=== PATIENT | male | born 1930 | race Caucasian/White ===

== ENCOUNTER 2017-04-21 04:57 | Emergency (ER) | payer MEDICARE, BC ==
--- NOTE | 2017-04-21 05:27 | ER Document Report ---
HPI - HPI Pain Level: Denies Notes: Patient is an 86-year-old male who presents to the ED complaining of right hip pain status post fall yesterday afternoon. Patient states that he was using his electric scooter in the yard when he tripped. Patient states that when he fell he twisted and landed in the grass, but denies hitting his head, loss of consciousness, nausea/vomiting. Patient states that he was able to get right back up and walking in the house without any problems. Patient states that the pain has been gradually building since that time. Patient states that the pain is primarily there when he is ambulating and weightbearing, and is not there when he is laying still. Patient states that that the pain is described as sharp/ache without any radiation. /daughter state that he is at his baseline for mentation and behavior w/o acute changes that they are aware of. Daughter states that he has been ambulatory around the house w/o any difficulties, but does note discomfort/pain on/off. Denies any headache, fever, changes in mentation/behavior/speech/vision/hearing , head injury, neck pain, URI, sore throat, chest pain, palpitations, syncope, cough, shortness of breath, wheeze, dyspnea, abdominal pain, nausea/vomiting/ diarrhea, urinary retention, dysuria, hematuria, loss of control of bowel or bladder, numbness/tingling, saddle anesthesia, muscle paralysis/weakness, or rash. - ROS Notes: REVIEW OF SYSTEMS: CONSTITUTIONAL : Denies fever, chills, or sweats. Denies recent illness. EENT: Denies eye, ear, throat, or mouth pain or symptoms. Denies nasal or sinus congestion or discharge. Denies throat, tongue, or mouth swelling or difficulty swallowing. CARDIOVASCULAR: Denies chest pain. Denies palpitations or racing or irregular heart beat. Denies ankle edema. RESPIRATORY: Denies cough, cold, or chest congestion. Denies shortness of breath, difficulty breathing, or wheezing. GASTROINTESTINAL: Denies abdominal pain or distention. Denies nausea, vomiting , or diarrhea. Denies blood in vomitus, stools, or per rectum. Denies black, tarry stools. Denies constipation. GENITOURINARY: Denies difficulty urinating, painful urination, burning, frequency, blood in urine, or discharge. MUSCULOSKELETAL: see hpi SKIN: Denies rash, lesions or sores. 13 NEUROLOGICAL: Denies confusion or altered mental status. Denies passing out or loss of consciousness. Denies dizziness or lightheadedness. Denies headache. Denies weakness or paralysis or loss of use of either side. Denies problems with gait or speech. Denies sensory loss, numbness, or tingling. ALL OTHER SYSTEMS REVIEWED AND NEGATIVE. Dictation was performed using [employer] voice recognition software - CARDIOVASCULAR Cardiovascular: DENIES: Chest pain - REPRODUCTIVE Reproductive: DENIES: : - DERM Skin Color: Normal Past Medical History - Social History Smoking Status: Former Smoker Chew tobacco use (# tins/day): No Frequency of alcohol use: None Drug Abuse: None Family History: Other - kidney stones. Patient has suicidal ideation: No Patient has homicidal ideation: No - Past Medical History Cardiac Medical History: Reports: Hx Coronary Artery Disease Pulmonary Medical History: Reports: Hx COPD Renal/ Medical History: Denies: Hx Peritoneal Dialysis Malignancy Medical History: Reports Hx Lung Cancer Musculoskeltal Medical History: Reports Hx Arthritis - RA. Past Surgical History: Reports: Hx Cardiac Surgery - CABG, Hx Coronary Artery Bypass Graft - Immunizations Hx Pneumococcal Vaccination: 07/27/09 Vertical Provider Document - CONSTITUTIONAL Agree With Documented VS: Yes Notes: PHYSICAL EXAMINATION: GENERAL: Well-appearing, well-nourished and in no acute distress. A&Ox4 HEAD: Atraumatic, normocephalic. Non-tender. No lagunas sign EYES: Pupils equal round and reactive to light, extraocular movements intact, sclera anicteric, conjunctiva are normal. No raccoon eyes/entrapment ENT: EAC clear b/l. TM's intact b/l without erythema, fluid, or perforation. Nares patent and without discharge. oropharynx clear without exudates. No tonsilar hypertrophy or erythema. Moist mucous membranes. No sinus tenderness. No hemotympanum/CSF discharge. NECK: Normal range of motion, supple without lymphadenopathy. No rigidity. No midline tenderness. Spurling negative. NEXUS negative. Chest: No flail chest. equal rise/fall. Non-tender LUNGS: Breath sounds clear to auscultation bilaterally and equal. No wheezes rales or rhonchi. (no lung sounds to LLL due to surgical removal) HEART: Regular rate and rhythm without murmurs, rubs, gallops. ABDOMEN: Soft, nontender, nondistended abdomen. No guarding, no rebound. No masses appreciated. Normal bowel sounds present. No CVA tenderness bilaterally. No pulsatile mass. : No lesions, ulcerations, or ecchymosis. No hernia. No testicular tenderness. No inguinal adenopathy. Musculoskeletal: Ext b/l: FROM to passive/active. Strength 5+/5. No deficits noted. + tenderness to palp of the anterior pelvis on the rt side when patient is weightbearing and is not there when supine. No tenderness with ROM of the hip. No ecchymosis, abrasion, laceration, or deformity noted. Back: FROM to passive/active. Strength 5+/5. No vertebral point tenderness, stepoffs, or deformities. No other bony tenderness or ecchymosis. SLR negative b/l. Extremities: No cyanosis, clubbing, or edema b/l. Peripheral pulses 2+. Capillary refill less than 2 seconds. NEUROLOGICAL: NIH 0. MMSE intact. Cranial nerves grossly intact. Normal speech, ataxic gait. Normal sensory, motor exams. Reflexes 2+ b/l. HI's negative. Pronator drift negative. Heel/zafar, finger/nose wnl. Walking on heels /toes and heel to toe wnl. PSYCH: Normal mood, normal affect. SKIN: Warm, Dry, normal turgor, no rashes or lesions noted. - INFECTION CONTROL TRAVEL OUTSIDE OF THE [place] IN LAST 30 DAYS: No - RESPIRATORY O2 Sat by Pulse Oximetry: 94 Course - Re-evaluation Re-evalutation: 04/21/17 06:50 Patient is an afebrile, well-hydrated, 86-year-old male who presents to the ED with a right hip flexor strain/right hip pain. Vitals are stable. PE otherwise unremarkable for any focal neurological deficits. X-ray of the pelvis was unremarkable for any acute fracture or dislocation. NIH score is 0 and MMSE was intact. Patient in no other bony tenderness. Recommend conservative measures for symptoms with close monitoring for any acute changes. Low suspicion/risk for any fracture, dislocation, septic joint, head injury, cranial pathology, sepsis, neurovascular compromise, or other systemic emergent condition at this time. Patient and family are aware that his condition can change from initial presentation and the need to monitor symptoms closely and seek medical attention if any acute changes. Recheck with your PCM in 2-3 days. Consider consult with orthopedics/physical therapy. Return to the ED with any worsening/concerning symptoms otherwise as reviewed in discharge. Patient and family are in agreement. - Vital Signs Vital signs: Temp Pulse Resp BP Pulse Ox 97.7 F 94 22 H 123/79 94 04/21/17 04:57 04/21/17 04:57 04/21/17 05:03 04/21/17 04:57 04/21/17 04:57 Discharge - Discharge Clinical Impression: Acute right hip pain Condition: Stable Disposition: HOME, SELF-CARE Instructions: Ice Massage ([facility]), Ice Packs ([facility]), Muscle Strain ([facility]), Warm Packs ([facility]) Additional Instructions: Rest, Ice Tylenol/ibuprofen as needed Light stretches daily Strength exercises as able Moist heat and massage may help F/u with your PCP in 2-3 days for a recheck Consider consult(s) with Orthopedics/physical therapy for ongoing/worsening symptoms Return to the ED with any worsening symptoms and/or development of fever, headache, changes in vision/hearing/behavior/mentation/speech, chest pain, palpitations, syncope, shortness of breath, trouble breathing, abdominal pain, n /v/d, blood in stool/urine, loss of control of bowel/bladder, urinary retention , muscle weakness/paralysis, saddle anesthesia, numbness/tingling, or other worsening symptoms that are concerning to you. Referrals: [facility] [Provider Group] - Follow up as needed
--- NOTE | 2017-04-21 06:49 | RADIOLOGY REPORT (SQ) ---
EXAM DESCRIPTION: PELVIS AP COMPLETED DATE/TIME: 04/21/2017 6:28 am REASON FOR STUDY: fall, rt side pain COMPARISON: None. NUMBER OF VIEWS: One view TECHNIQUE: AP Pelvis LIMITATIONS: None. FINDINGS: MINERALIZATION: Normal. HIPS: No acute fracture or dislocation. No worrisome bone lesions. Minimal fragmented enthesophyte a t the lateral aspect of the right greater trochanter. PELVIS AND SACRUM: No acute fracture or dislocation. No worrisome bone lesions. PUBIS AND ISCHIUM: No acute fracture. LOWER LUMBAR SPINE: Mild lower lumbar disc desiccation. SOFT TISSUES: No findings. OTHER: Atherosclerosis. IMPRESSION: No acute findings. TECHNICAL DOCUMENTATION: JOB ID: [id number] [email or web address]- All Rights Reserved
[2017-04-21 07:34] VITALS: BP 140/72
== END 2017-04-21 07:20 | disposition home or self-care (01) ==
LOC: ER 04:57
DX: M25.551 Pain in right hip (principal); W05.2XXA Fall from non-moving motorized mobility scooter, initial encounter; Y92.007 Garden or yard of unspecified non-institutional (private) residence as the place of occurrence of the external cause; I25.10 Atherosclerotic heart disease of native coronary artery without angina pectoris; J44.9 Chronic obstructive pulmonary disease, unspecified; Z95.1 Presence of aortocoronary bypass graft; Z85.118 Personal history of other malignant neoplasm of bronchus and lung
CPT/HCPCS: 72170; 99283

== ENCOUNTER 2017-06-05 19:53 | Emergency (ER) | payer BC, MEDICARE ==
[2017-06-05 21:28] LABS: ABSOLUTE BASOPHILS # (AUTO) 0.1 10^3/uL (0.0-0.2); ABSOLUTE EOSINOPHILS # (AUTO) 0.1 10^3/uL (0.0-0.6); ABSOLUTE MONOCYTES (AUTO) 0.4 10^3/uL (0.1-1.4); ABSOLUTE NEUT (AUTO) 4.4 10^3/uL (1.7-8.2); EOSINOPHILS % (AUTO) 1.7 % (0-6); HEMOGLOBIN 14.1 g/dL (13.5-17.0); HGB HCT DIFFERENCE 1.3; LYMPHOCYTES % (AUTO) 16.2 % (13-45); MEAN CORPUSCULAR HGB CONC 34.3 g/dL (32.0-36.0); MEAN CORPUSCULAR VOLUME 99 fl (80-97); MONOCYTES % (AUTO) 6.9 % (3-13); RED BLOOD COUNT 4.14 10^6/uL (4.35-5.55); RED CELL DISTRIBUTION WIDTH 14.3 % (11.5-14.0); SEGMENTED NEUTROPHILS % (AUTO) 74.2 % (42-78); WHITE BLOOD COUNT 5.9 10^3/uL (4.0-10.5)
[2017-06-05 21:40] LABS: ALANINE AMINOTRANSFERASE 34 U/L (21-72); ALBUMIN 3.1 g/dL (3.5-5.0); ALKALINE PHOSPHATASE 101 U/L (38-126); ANION GAP 5 (5-19); ASPARTATE AMINO TRANSFERASE 25 U/L (17-59); BILIRUBIN,DIRECT 0.4 mg/dL (0.0-0.4); BILIRUBIN,TOTAL 1.4 mg/dL (0.2-1.3); BLOOD UREA NITROGEN 30 mg/dL (7-20); CALCIUM 8.6 mg/dL (8.4-10.2); CARBON DIOXIDE 25 mmol/L (22-30); CHLORIDE 105 mmol/L (98-107); CREATININE RESULT 1.47 mg/dL (0.52-1.25); GLUCOSE 99 mg/dL (75-110); LIPASE 106.3 U/L (23-300); POTASSIUM 4.1 mmol/L (3.6-5.0); SODIUM 134.9 mmol/L (137-145); TOTAL PROTEIN 5.9 g/dL (6.3-8.2)
--- NOTE | 2017-06-05 22:20 | RADIOLOGY REPORT (SQ) ---
EXAM DESCRIPTION: CHEST SINGLE VIEW COMPLETED DATE/TIME: 06/05/2017 9:46 pm REASON FOR STUDY: flank pain COMPARISON: 10/13/2010 EXAM PARAMETERS: NUMBER OF VIEWS: One view. TECHNIQUE: Single frontal radiographic view of the chest acquired. RADIATION DOSE: NA LIMITATIONS: None. FINDINGS: LUNGS AND PLEURA: No opacities, masses or pneumothorax. No pleural effusion. MEDIASTINUM AND HILAR STRUCTURES: No masses. Contour normal. HEART AND VASCULAR STRUCTURES: Heart normal in size. Normal vasculature. BONES: No acute findings. HARDWARE: Midline surgical changes, stable. OTHER: No other significant finding. IMPRESSION: No evidence of acute cardiopulmonary process. TECHNICAL DOCUMENTATION: JOB ID: [id number] [employer]- All Rights Reserved
[2017-06-05] MEDS ORDERED: NORMAL SALINE 500 ML IV PRN (22:26)
[2017-06-05 22:43] LABS: APPEARANCE,URINE CLEAR; BILIRUBIN,URINE NEGATIVE (NEGATIVE); GLUCOSE, URINE NEGATIVE (NEGATIVE); KETONES,URINE NEGATIVE (NEGATIVE); LEUKOCYTE ESTERASE,URINE TRACE (NEGATIVE); NITRITE,URINE NEGATIVE (NEGATIVE); PROTEIN,URINE NEGATIVE (NEGATIVE); URINE SPECIFIC GRAVITY 1.011; UROBILINOGEN,URINE NEGATIVE mg/dL (<2.0)
--- NOTE | 2017-06-05 23:34 | RADIOLOGY REPORT (SQ) ---
EXAM DESCRIPTION: CT ABD/PELVIS NO ORAL OR IV COMPLETED DATE/TIME: 06/05/2017 11:02 pm REASON FOR STUDY: right flank pain COMPARISON: 7.28.15 TECHNIQUE: CT scan of the abdomen and pelvis performed without intravenous or oral contrast. Images reviewed with lung, soft tissue, and bone windows. Reconstructed coronal and sagittal MPR images revi ewed. All images stored on PACS. All CT scanners at this facility use dose modulation, iterative reconstruction, and/or weight based d osing when appropriate to reduce radiation dose to as low as reasonably achievable (ALARA). [facility]: Dose Right [facility]: CareDose [facility]: Dose Right [facility]: Teradose 4D [facility]: Novalact RADIATION DOSE: Up-to-date CT equipment and radiation dose reduction techniques were employed. CTDIv ol: 11.5 mGy. DLP: 653 mGy-cm.mGy. LIMITATIONS: None. FINDINGS: LOWER CHEST: No significant findings. No nodules or infiltrates. Coronary arterial calcif ication -stenting. Small hiatal hernia. NON-CONTRASTED LIVER, SPLEEN, ADRENALS: Evaluation limited by lack of IV contrast. No identified sign ificant masses. PANCREAS: No masses. No peripancreatic inflammatory changes. GALLBLADDER: No identified stones by CT criteria. No inflammatory changes to suggest cholecystitis. RIGHT KIDNEY AND URETER: No suspicious masses. Assessment limited by lack of IV contrast. No signif icant calcifications. No hydronephrosis or hydroureter. LEFT KIDNEY AND URETER: No suspicious masses. Assessment limited by lack of IV contrast. No signifi cant calcifications. No hydronephrosis or hydroureter. Moderate likely benign parapelvic cysts. 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 BOWEL AND PERITONEAL CAVITY: No obvious masses or inflammatory changes. No free fluid. Minimal diver ticulosis. APPENDIX: Normal. PELVIS, BLADDER, AND ABDOMINAL WALL:6.7 cm fat only hernia of the anterior pelvic wall lateral to the right rectus abdominus. Small right inguinal fat only hernia. No free fluid. Bladder normal. BONES: New [id number] T12 anterior vertebral compression deformity compared with prior CT from January 2015. [id number] disc desiccation moderate mid-lower lumbar spondylosis. Sternotomy. OTHER: No other significant finding. IMPRESSION: 1. New [id number] T12 anterior vertebral compression deformity compared with prio r available exam from January 2015. 2. 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 3. Small hiatal hernia. Diverticulosis. COMMENT: Quality ID # [id number]: Final reports with documentation of one or more dose reduction techniques (e.g., Automated exposure control, adjustment of the mA and/or kV according to patient size, use of iterative reconstruction technique) TECHNICAL DOCUMENTATION: JOB ID: [id number] [employer]- All Rights Reserved
--- NOTE | 2017-06-06 00:50 | ER Document Report ---
ED General - General Chief Complaint: Flank Pain Stated Complaint: RIGHT FLANK PAIN Time Seen by Provider: 06/05/17 20:54 Mode of Arrival: Ambulatory Information source: Patient Notes: This is an 87-year-old man who presents to the emergency room with back pain after a fall 1 month ago. Patient's family also states that the patient has had decreased p.o. intake and significant weight loss over the past several months. The patient does have a remote history of lung cancer and had a partial lobectomy and did not require chemotherapy or radiation. He does have a history of rheumatoid arthritis, coronary artery disease, hypertension. Family also reports that he has had constipation lately and difficulty urinating and is recently seen a urologist. TRAVEL OUTSIDE OF THE [place] IN LAST 30 DAYS: No - HPI Onset: Last week Onset/Duration: Gradual Quality of pain: Dull Severity: Moderate Pain Level: 2 Associated symptoms: denies: Chest pain, Fever, Shortness of breath Exacerbated by: Denies Relieved by: Denies Similar symptoms previously: Yes Recently seen / treated by doctor: Yes - Related Data Allergies/Adverse Reactions: No Known Allergies Allergy (Unverified 10/12/10 17:20) Past Medical History - General Information source: Patient - Social History Smoking Status: Unknown if Ever Smoked Cigarette use (# per day): No Chew tobacco use (# tins/day): No Frequency of alcohol use: None Drug Abuse: None Lives with: Family Family History: None, Other - kidney stones. Patient has suicidal ideation: No Patient has homicidal ideation: No - Past Medical History Cardiac Medical History: Reports: Hx Coronary Artery Disease Pulmonary Medical History: Reports: Hx COPD Renal/ Medical History: Denies: Hx Peritoneal Dialysis Malignancy Medical History: Reports Hx Lung Cancer Musculoskeltal Medical History: Reports Hx Arthritis - RA. Past Surgical History: Reports: Hx Cardiac Surgery - CABG, Hx Coronary Artery Bypass Graft - Immunizations Hx Pneumococcal Vaccination: 07/27/09 Review of Systems - Review of Systems Constitutional: denies: Chills, Fever EENT: No symptoms reported Cardiovascular: No symptoms reported Respiratory: No symptoms reported Gastrointestinal: No symptoms reported Genitourinary: No symptoms reported Male Genitourinary: No symptoms reported Musculoskeletal: See HPI Skin: No symptoms reported Hematologic/Lymphatic: No symptoms reported Neurological/Psychological: No symptoms reported Physical Exam - Vital signs Vitals: Temp Pulse Resp BP Pulse Ox 97.7 F 80 16 113/69 100 06/05/17 20:08 06/05/17 20:08 06/05/17 20:08 06/05/17 20:08 06/05/17 20:08 Notes: Physical exam: GENERAL: 87-year-old man, alert and oriented 3, no acute distress. HEAD: Atraumatic, normocephalic. EYES: Pupils equal round and reactive to light, extraocular movements intact, sclera anicteric, conjunctiva are normal. ENT: TMs normal, nares patent, oropharynx clear without exudates. Moist mucous membranes. NECK: Normal range of motion, supple without obvious mass or JVD. LUNGS: Breath sounds clear to auscultation bilaterally and equal. No wheezes rales or rhonchi. HEART: Regular rate and rhythm without murmurs, rubs or gallops. ABDOMEN: Soft, normoactive bowel sounds. No tenderness to palpation. No guarding, no rebound. No masses appreciated. Rectal: Brown stool, heme negative. Patient does have a very superficial decubitus on the right buttocks. EXTREMITIES: Normal range of motion, no pitting or edema. No clubbing or cyanosis. NEUROLOGICAL: Cranial nerves II through XII grossly intact. Normal speech, moving all extremities. PSYCH: Normal mood, normal affect. SKIN: Patient does have a superficial coupon the right buttock which the family has been following. Course - Vital Signs Vital signs: Temp Pulse Resp BP Pulse Ox 97.9 F 70 22 H 111/60 95 06/05/17 20:21 06/06/17 02:11 06/06/17 02:11 06/06/17 02:11 06/06/17 02:11 - Laboratory Result Diagrams: 06/05/17 21:02 06/05/17 21:02 Laboratory results interpreted by me: 06/05/17 06/05/17 06/05/17 21:02 21:02 21:33 RBC 4.14 L MCV 99 H MCH 34.0 H RDW 14.3 H Sodium 134.9 L BUN 30 H Creatinine 1.47 H Est GFR ( Amer) 55 L Est GFR (Non-Af Amer) 45 L Total Bilirubin 1.4 H Total Protein 5.9 L Albumin 3.1 L Ur Leukocyte Esterase TRACE H - Diagnostic Test Radiology reviewed: Image reviewed, Reports reviewed - CT of the abdomen shows some mild to moderate compression fracture of T12. It also shows a 2.5 cm aneurysm of the right common iliac - EKG Interpretation by Me Rate: Normal Rhythm: NSR - EKG shows atrial fibrillation with a ventricular rate of 71, right bundle ovoid palliated, no acute ST-T wave changes, no significant change compared to old EKG Discharge - Discharge Clinical Impression: T12 compression fracture Condition: Stable Disposition: HOME, SELF-CARE Instructions: Compression Fracture of the Spine ([facility]) Additional Instructions: As we discussed, the chest x-ray looked good. The CT of the abdomen did show a mild to moderate compression fracture of T12 which most likely occurred during the fall. You are already on medicine to treat for pain. Take the oxycodone as needed. See the instructions for oxycodone. There was an incidental finding on the CT: It did show a 2.5 cm dilatation of the right internal iliac artery. This is an artery coming out from the aorta. You should follow-up with Dr. Ramirez and get a referral to a vascular surgeon. As far as the superficial decubitus on the buttocks: I recommend following up at the wound center here at the hospital. I left a number for Dr. Jonatan Mansfield who is a doctor at the wound care center. The pain medicine you're taking prescribed as a narcotic. There are several important things you should know about this medicine: 1. Taking narcotics for too long can lead to physical and mental dependence. Take this medicine only if really needed and in the lowest quantity to achieve pain relief. 2. Do not drink alcohol while on this medicine. Alcohol interacts with narcotics and the combination can be dangerous. 3. Do not drive or operate machinery while on this medicine. 4. Narcotics do cause constipation, so drink plenty of fluids and daily stool softeners. Prescriptions: Oxycodone HCl 5 mg PO Q6HP PRN #25 tablet PRN Reason: Referrals: MAYO RAMIREZ MD [Primary Care Provider] - Follow up as needed SUGEY MANSFIELD MD [ACTIVE STAFF] - Follow up as needed (This is the number for the wound care doctor.)
[2017-06-06 02:12] VITALS: BP 111/60
--- NOTE | 2017-06-06 08:45 | EKG REPORT ---
SEVERITY:- ABNORMAL ECG - ATRIAL FIBRILLATION, V-RATE 53-88 RBBB AND LAFB : Confirmed by: Bert Keane MD 06-Jun-2017 08:44:15
== END 2017-06-06 02:13 | disposition home or self-care (01) ==
LOC: ER 19:53
DX: S22.089A Unspecified fracture of T11-T12 vertebra, initial encounter for closed fracture (principal); R10.9 Unspecified abdominal pain; M54.9 Dorsalgia, unspecified; K59.00 Constipation, unspecified; W19.XXXA Unspecified fall, initial encounter; Z85.118 Personal history of other malignant neoplasm of bronchus and lung
CPT/HCPCS: 93005; 99285; 36415; 83690; 85025; 82272; 80053; 81001; 71010; 74176; 93010; J7040

== ENCOUNTER 2017-11-20 08:34 | Inpatient (IN) | payer MEDICARE, BC ==
[2017-11-20] MEDS ORDERED: IPRATROPIUM/ALBUTEROL 0.5-2.5 MG/3 ML AMPUL NEB ONE ×2 (09:15→12:30)
[2017-11-20] MEDS ORDERED: PREDNISONE 20 MG TABLET PO ONE ×2 (09:15→12:30)
[2017-11-20] MEDS: ALBUTEROL SULFATE 0.083% NEB 2.5 MG/3 ML AMPUL NEB SCH ×4 (09:33→13:20)
--- NOTE | 2017-11-20 10:11 | RADIOLOGY REPORT (SQ) ---
EXAM DESCRIPTION: CHEST SINGLE VIEW COMPLETED DATE/TIME: 11/20/2017 9:48 am REASON FOR STUDY: Difficulty in breathing COMPARISON: 06/05/2017 EXAM PARAMETERS: NUMBER OF VIEWS: One view. TECHNIQUE: Single frontal radiographic view of the chest acquired. RADIATION DOSE: NA LIMITATIONS: None. FINDINGS: LUNGS AND PLEURA: Postsurgical changes in the left hilum which are stable. Chronic blunti ng left costophrenic angle. Right lung is clear. MEDIASTINUM AND HILAR STRUCTURES: Stable. HEART AND VASCULAR STRUCTURES: Stable heart size. BONES: No acute findings. HARDWARE: CABG. OTHER: No other significant finding. IMPRESSION: Stable, chronic changes. TECHNICAL DOCUMENTATION: JOB ID: [id number] [employer]- All Rights Reserved Reading location - IP/workstation name: [facility]-[email or web address]
[2017-11-20 11:04] LABS: APPEARANCE,URINE CLEAR; BILIRUBIN,URINE NEGATIVE (NEGATIVE); COLOR,URINE AMBER; GLUCOSE, URINE NEGATIVE (NEGATIVE); KETONES,URINE NEGATIVE (NEGATIVE); LEUKOCYTE ESTERASE,URINE NEGATIVE (NEGATIVE); NITRITE,URINE NEGATIVE (NEGATIVE); PROTEIN,URINE 30 mg/dL (NEGATIVE); URINE SPECIFIC GRAVITY 1.027; UROBILINOGEN,URINE NEGATIVE mg/dL (<2.0)
[2017-11-20 11:18] LABS: HEMATOCRIT 42.6 % (37.9-51.0); HEMOGLOBIN 14.2 g/dL (13.5-17.0); MEAN CORPUSCULAR HEMOGLOBIN 33.7 pg (27.0-33.4); MEAN CORPUSCULAR HGB CONC 33.2 g/dL (32.0-36.0); MEAN CORPUSCULAR VOLUME 102 fl (80-97); PLATELET COUNT 184 10^3/uL (150-450); RED CELL DISTRIBUTION WIDTH 14.3 % (11.5-14.0); WHITE BLOOD COUNT 11.8 10^3/uL (4.0-10.5)
[2017-11-20 11:33] LABS: ALANINE AMINOTRANSFERASE 21 U/L (21-72); ALBUMIN 3.2 g/dL (3.5-5.0); ALKALINE PHOSPHATASE 85 U/L (38-126); ANION GAP 7 (5-19); ASPARTATE AMINO TRANSFERASE 22 U/L (17-59); BILIRUBIN,DIRECT 0.2 mg/dL (0.0-0.4); BILIRUBIN,TOTAL 1.5 mg/dL (0.2-1.3); BLOOD UREA NITROGEN 19 mg/dL (7-20); CARBON DIOXIDE 33 mmol/L (22-30); CHLORIDE 102 mmol/L (98-107); CREATINE KINASE 30 U/L (55-170); GLUCOSE 105 mg/dL (75-110); SODIUM 141.7 mmol/L (137-145); TOTAL PROTEIN 6.1 g/dL (6.3-8.2)
[2017-11-20 11:37] LABS: ABSOLUTE LYMPHOCYTES# (MANUAL) 0.8 10^3/uL (0.5-4.7); ABSOLUTE MONOCYTES # (MANUAL) 0.2 10^3/uL (0.1-1.4); ABSOLUTE NEUTROPHILS# (MANUAL) 10.7 10^3/uL (1.7-8.2); BASOPHILS % (MANUAL) 0 % (0-2); EOSINOPHILS % (MANUAL) 0 % (0-6); LYMPHOCYTES % (MANUAL) 7 % (13-45); MONOCYTES % (MANUAL) 2 % (3-13); PLATELET COMMENT ADEQUATE; POLYCHROMASIA SLIGHT; SEGMENTED NEUTROPHILS % (MAN) 91 % (42-78); TOTAL CELLS COUNTED 100; TOXIC GRANULATION 1+
--- NOTE | 2017-11-20 12:54 | EKG REPORT ---
SEVERITY:- ABNORMAL ECG - ATRIAL FIBRILLATION, V-RATE 68-82 RIGHT BUNDLE BRANCH BLOCK +LAFB : Confirmed by: Bert Keane MD 20-Nov-2017 12:54:06
--- NOTE | 2017-11-20 14:21 | ER Document Report ---
ED General - General Chief Complaint: Nausea/Vomiting Stated Complaint: VOMITING,SHORTNESS OF BREATH Time Seen by Provider: 11/20/17 09:10 Information source: Patient, Relative, Emergency Med Personnel Notes: History of complain-87 years old male was brought in because of difficulty in breathing condition some chest discomfort for the last few days. No nausea vomiting diarrhea. He is on Lasix but not urinating that well. Also noted some swelling of the lower extremity. No chest pain. No fever chills or other constitutional symptoms. REVIEW OF SYSTEMS: CONSTITUTIONAL : Denies fever, chills, or sweats. Denies recent illness. EENT: Denies eye, ear, throat, or mouth pain or symptoms. Denies nasal or sinus congestion or discharge. Denies throat, tongue, or mouth swelling or difficulty swallowing. CARDIOVASCULAR: Denies chest pain. Denies palpitations or racing or irregular heart beat. Denies ankle edema. RESPIRATORY: Denies cough, cold, or chest congestion. Denies shortness of breath, difficulty breathing, or wheezing. GASTROINTESTINAL: Denies abdominal pain or distention. Denies nausea, vomiting , or diarrhea. Denies blood in vomitus, stools, or per rectum. Denies black, tarry stools. Denies constipation. GENITOURINARY: Denies difficulty urinating, painful urination, burning, frequency, blood in urine, or discharge. MUSCULOSKELETAL: Denies back or neck pain or stiffness. Denies joint pain or swelling. SKIN: Denies rash, lesions or sores. HEMATOLOGIC : Denies easy bruising or bleeding. LYMPHATIC: Denies swollen, enlarged glands. NEUROLOGICAL: Denies confusion or altered mental status. Denies passing out or loss of consciousness. Denies dizziness or lightheadedness. Denies headache. Denies weakness or paralysis or loss of use of either side. Denies problems with gait or speech. Denies sensory loss, numbness, or tingling. Denies seizures. PSYCHIATRIC: Denies anxiety or stress. Denies depression, suicidal ideation, or homicidal ideation. ALL OTHER SYSTEMS REVIEWED AND NEGATIVE. Dictation was performed using AFTER-MOUSE recognition software PHYSICAL EXAMINATION: GENERAL: Well-appearing, well-nourished and mild to moderate respiratory acute distress. HEAD: Atraumatic, normocephalic. EYES: Pupils equal round and reactive to light, extraocular movements intact, sclera anicteric, conjunctiva are normal. ENT: Nares patent, oropharynx clear without exudates. Moist mucous membranes. NECK: Normal range of motion, supple without lymphadenopathy LUNGS: Diffuse expiratory wheezes with, rales in the lower lung field. HEART: Regular rate and rhythm without murmurs ABDOMEN: Soft, nontender, nondistended abdomen. No guarding, no rebound. No masses appreciated. Musculoskeletal: Normal range of motion, 2+ pitting or edema. No cyanosis. NEUROLOGICAL: Cranial nerves grossly intact. Normal speech, normal gait. Normal sensory, motor exams PSYCH: Normal mood, normal affect. SKIN: Warm, Dry, normal turgor, no rashes or lesions noted. TRAVEL OUTSIDE OF THE [place] IN LAST 30 DAYS: No - HPI Onset: Yesterday Onset/Duration: Gradual Quality of pain: Cramping Severity: Moderate Associated symptoms: None Exacerbated by: denies: Denies, Supine, Sitting, Standing, Movement, Walking, Coughing, Deep breathing, Food, Other Relieved by: denies: Denies, Supine, Sitting, Standing, Remaining still, Antacids, Food, Other - Related Data Allergies/Adverse Reactions: tramadol Allergy (Verified 11/20/17 10:57) Past Medical History - Social History Smoking Status: Former Smoker Chew tobacco use (# tins/day): No Frequency of alcohol use: None Drug Abuse: None Family History: None, Other - kidney stones. Patient has suicidal ideation: No Patient has homicidal ideation: No - Past Medical History Cardiac Medical History: Reports: Hx Atrial Fibrillation, Hx Congestive Heart Failure, Hx Coronary Artery Disease Pulmonary Medical History: Reports: Hx COPD Renal/ Medical History: Denies: Hx Peritoneal Dialysis Malignancy Medical History: Reports Hx Lung Cancer Musculoskeltal Medical History: Reports Hx Arthritis - RA. Past Surgical History: Reports: Hx Cardiac Surgery - CABG, Hx Coronary Artery Bypass Graft - Immunizations Hx Pneumococcal Vaccination: 07/27/09 Review of Systems - Review of Systems Constitutional: denies: No symptoms reported, See HPI, Chills, Diaphoresis, Fever, Malaise, Weakness, Other, Weight gain, Weight loss, Recent illness EENT: denies: No symptoms reported, See HPI, Eye pain, Eye discharge, Blurred vision, Tearing, Double vision, Ear pain, Ear discharge, Nose pain, Nose congestion, Nose discharge, Sinus pressure, Sinus discharge, Throat pain, Difficulty swallowing, Throat swelling, Mouth pain, Mouth swelling, Dental problem, Vertigo, Other Cardiovascular: See HPI Respiratory: See HPI Gastrointestinal: denies: No symptoms reported, See HPI, Abdomen distended, Abdominal pain, Diarrhea, Nausea, Vomiting, Constipation, Blood streaked bowels , Poor appetite, Poor fluid intake, Blood in vomit, Black stools, Rectal bleeding, Last bowel movement, Fecal incontinence, Other Genitourinary: denies: No symptoms reported, See HPI, Burning, Dysuria, Discharge, Frequency, Flank pain, Hematuria, Incontinence, Pain, Urgency, Retention, Other Male Genitourinary: denies: No symptoms reported, See HPI, Erectile dysfunction , Testicular pain, Penile discharge, Other Hematologic/Lymphatic: denies: No symptoms reported, See HPI, Anemia, Blood clots, Easy bleeding, Easy bruising, Enlarged lymph nodes, Swollen glands, Other Neurological/Psychological: denies: No symptoms reported, See HPI, Confusion, Dementia, Depression, Hallucinations, Anxiety, Homicidal ideation, Sensory change, Weakness, Gait changes, Loss of power, Paralysis, Seizure, Lost consciousness, Headaches, Speech impairment, Numbness, Suicidal ideation, Tingling, Tremor, Other Physical Exam - Vital signs Vitals: Temp Pulse BP Pulse Ox 98.0 F 80 132/49 H 99 11/20/17 08:50 11/20/17 08:50 11/20/17 08:50 11/20/17 08:50 - Notes Notes: Dictated Course - Re-evaluation Re-evalutation: 11/20/17 14:20 Given bronchodilator treatment as well as Lasix. Discussed with the hospitalist and admitted - Vital Signs Vital signs: Temp Pulse Resp BP Pulse Ox 98.0 F 80 15 120/57 L 97 11/20/17 08:50 11/20/17 08:50 11/20/17 12:00 11/20/17 12:01 11/20/17 12:01 - Laboratory Result Diagrams: 11/20/17 10:51 11/20/17 10:51 Laboratory results interpreted by me: 11/20/17 11/20/17 11/20/17 10:29 10:51 10:51 WBC 11.8 H RBC 4.20 L MCV 102 H MCH 33.7 H RDW 14.3 H Seg Neuts % (Manual) 91 H Lymphocytes % (Manual) 7 L Monocytes % (Manual) 2 L Abs Neuts (Manual) 10.7 H Carbon Dioxide 33 H Total Bilirubin 1.5 H Creatine Kinase 30 L Total Protein 6.1 L Albumin 3.2 L Urine Protein 30 H - Diagnostic Test Radiology reviewed: Reports reviewed - Chest x-ray reported by radiologist as unremarkable Discharge - Discharge Clinical Impression: Asthma exacerbation in COPD Congestive heart failure Qualifiers: Heart failure type: systolic Heart failure chronicity: acute on chronic Qualified Code(s): I50.23 - Acute on chronic systolic (congestive) heart failure Condition: Fair Disposition: ADMITTED INPATIENT Admitting Provider: Hospitalist Unit Admitted: Telemetry
[2017-11-20] MEDS ORDERED: ACETAMINOPHEN 325 MG TABLET PO PRN (14:53)
[2017-11-20] MEDS ORDERED: LEVALBUTEROL HCL NEB 0.63 MG/3 ML AMPUL NEB PRN (14:53)
[2017-11-20] MEDS ORDERED: (PENDING PHARMACY ID) (Lisinopril [Lisinopril] 20 MG) PO SCH (15:15)
--- NOTE | 2017-11-20 15:55 | PDOC H&P ---
History of Present Illness Admission Date/PCP: 11/20/17 14:39 Patient complains of: Wheezing for 2 weeks History of Present Illness: OBDULIA POP is a 87 year old male with past medical history significant for coronary artery disease, heart failure, COPD who has been cared for at home by a large family and also recently he has had home health nursing related to underlying medical problems including rheumatoid arthritis. About 2 weeks ago the patient reports that his doctor decreased his Lasix from 80 mg dosing to 40 mg dosing. Shortly thereafter he began to have wheezing and swelling in his legs and feet. Secondary to the wheezing causing respiratory distress in the home one day his home health nurse called EMS. The patient refused to go to the ER. That is when his doctor increased the Lasix back to 80 mg. Since then he has felt a little bit better but the wheezing has persisted. No chest pain. He has been coughing more and more over the past 2 weeks with green brown phlegm now. He has had night sweats for the past 2 weeks and no documented fever, daughter reports they have been checking temperatures and he has had no fever. Today his breathing got so bad that the family decided to bring him into the ER. Secondary to COPD exacerbation, possible bronchitis, heart failure exacerbation and is being admitted to the hospitalist service. Regarding the wheezing, it improved with increase in Lasix. It is moderate in intensity. It also improved with breathing treatments. Nothing in particular seems to be making it worse. It has been associated with cough. I am also told that he has been falling lately. He is not losing consciousness around the time of the falls. He remembers all of the events. No dizziness associated with the falls. He has been walking with a walker lately. He has PT and OT in the home and there is a discussion as to whether or not he has a parkinsonism. Today in the ER he had an ear lavage and a significant amount of cerumen was removed and his hearing improved greatly after this. Decreased hearing could be contributing to the falls. Past Medical History Cardiac Medical History: Reports: Atrial Fibrillation, Congestive Heart Failure , Coronary Artery Disease, Hypertension, Peripheral Vascular Disease Pulmonary Medical History: Reports: Bronchitis - Chronic, Chronic Obstructive Pulmonary Disease (COPD) EENT Medical History: Reports: Cataracts Neurological Medical History: Reports: Other - TIA Malignancy Medical History: Reports: Lung Cancer GI Medical History: Reports: Other - History of gastritis or peptic ulcer disease Musculoskeltal Medical History: Reports: Arthritis - Rheumatoid arthritis with significant joint deformity Skin Medical History: Reports: Other - Malignant melanoma history, tannic keratoses Psychiatric Medical History: Reports: Dementia - Mild dementia, type unknown Hematology: Reports: Other - Patient has been on anticoagulation for A. 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 Lives with: Family Smoking Status: Former Smoker - In 1972 Number of Years Smokin Frequency of Alcohol Use: None Hx Recreational Drug Use: No Hx Prescription Drug Abuse: No Past Social History Note: Patient is retired, please see above for work history. He is a [place] era , no active combat duty. - Advance Directive Resuscitation Status: Do Not Resuscitate Surrogate healthcare decision maker:: Patient's adult children, they are in the process now of working on living will and healthcare power of employment attorney paperwork in the home. Family History Parental Family History Reviewed: Yes - father from some type of aneurysm in his 50s, mother with CHF Children Family History Reviewed: Yes - children healthy, 3 adult children Sibling(s) Family History Reviewed.: Yes - brother is healthy Medication/Allergy Home Medications: Albuterol Sulfate [Albuterol Sulfate 2.5mg/3 mL] 1 vial IH Q6 11/20/17 Donepezil HCl [Aricept] 10 mg PO DAILY 11/20/17 Folic Acid [Folvite 1 mg Tablet] 1 mg PO DAILY 11/20/17 Furosemide [Lasix 40 mg Tablet] 40 mg PO QAM 11/20/17 Gabapentin [Neurontin 100 mg Capsule] 200 mg PO HSP PRN 11/20/17 Lisinopril [Prinivil] 20 mg PO DAILY 11/20/17 Magnesium Oxide [Mag-Ox 400 mg Tablet] 400 mg PO DAILY 11/20/17 Methotrexate Sodium [Methotrexate] 15 mg PO FR@1000 11/20/17 Metoprolol Succinate [Toprol Xl 50 mg Tab.sr] 75 mg PO DAILY 11/20/17 Omeprazole 20 mg PO DAILY 11/20/17 Tamsulosin HCl [Flomax 0.4 mg Cap.sr] 0.4 mg PO DAILY 11/20/17 Allergies/Adverse Reactions: tramadol Allergy (Verified 11/20/17 10:57) Review of Systems Constitutional: PRESENT: chills, fatigue, night sweats, weakness. ABSENT: fever (s) Eyes: ABSENT: visual disturbances Ears: PRESENT: hearing changes Nose, Mouth, and Throat: ABSENT: mouth pain, sore throat Cardiovascular: PRESENT: dyspnea on exertion, edema, orthropnea. ABSENT: chest pain, palpitations Respiratory: PRESENT: cough, dyspnea, sputum. ABSENT: hemoptysis Gastrointestinal: PRESENT: abdominal pain, constipation, diarrhea, vomiting. ABSENT: bloating, coffee ground emesis, hematemesis, hematochezia, melena, nausea Genitourinary: PRESENT: nocturia. ABSENT: hematuria Musculoskeletal: PRESENT: deformity, joint swelling Integumentary: ABSENT: diaphoresis, pruritus, wounds Neurological: PRESENT: abnormal gait, frequent falls, memory loss, numbness. ABSENT: convulsions, dizziness, tingling, vertigo Psychiatric: ABSENT: anxiety, depression Endocrine: ABSENT: cold intolerance, heat intolerance Hematologic/Lymphatic: PRESENT: easy bruising Allergic/Immunologic: PRESENT: seasonal rhinorrhea Physical Exam Vital Signs: Temp Pulse Resp BP Pulse Ox 98.0 F 80 25 H 100/47 L 96 11/20/17 08:50 11/20/17 08:50 11/20/17 14:01 11/20/17 14:01 11/20/17 14:01 General appearance: PRESENT: no acute distress, cooperative, hard of hearing, obese. ABSENT: disheveled, mild distress Head exam: PRESENT: atraumatic, normocephalic Eye exam: PRESENT: EOMI. ABSENT: conjunctival injection, periorbital swelling, scleral icterus Ear exam: PRESENT: normal external ear exam Mouth exam: PRESENT: moist, tongue midline Teeth exam: PRESENT: edentulous Throat exam: PRESENT: post pharyngeal erythema Neck exam: ABSENT: lymphadenopathy, tenderness Respiratory exam: PRESENT: decreased breath sounds, prolonged expiratory phas, wheezes. ABSENT: accessory muscle use, chest wall tenderness, clear to auscultation javier, rales, rhonchi, unlabored Cardiovascular exam: PRESENT: RRR. ABSENT: systolic murmur Pulses: ABSENT: normal radial pulses GI/Abdominal exam: PRESENT: hernia, normal bowel sounds, soft, tenderness. ABSENT: distended, firm, guarding, mass Rectal exam: PRESENT: deferred Extremities exam: PRESENT: pedal edema, +1 edema. ABSENT: calf tenderness Musculoskeletal exam: PRESENT: other - multiple RA swan neck deformities and rheumatoid nodules Neurological exam: PRESENT: alert, awake, oriented to person, oriented to place , oriented to situation, CN II-XII grossly intact Psychiatric exam: PRESENT: appropriate affect. ABSENT: anxious Skin exam: PRESENT: intact. ABSENT: jaundice Results Impressions: Chest X-Ray 11/20/17 09:19 IMPRESSION: Stable, chronic changes. Assessment & Plan - Diagnosis (1) COPD with exacerbation Is this a current diagnosis for this admission?: Yes Plan: Likely related to bronchitis. Will treat bronchitis doxycycline 100 mg p.o. every 12 hours and also will start the patient on methylprednisolone 40 mg IV every 12 hours. Will use duo nebs as needed wheezing and shortness of breath. (2) Acute bronchitis Is this a current diagnosis for this admission?: Yes Plan: Doxycycline 100 mg p.o. twice daily (3) Epigastric pain Is this a current diagnosis for this admission?: Yes Plan: Patient was recently on a PPI, this was discontinued by his doctor. Around the same time he was started on an aspirin when his warfarin was stopped secondary to frequent falls. The patient is also on Celebrex. He has a history of peptic ulcer disease or gastritis, unknown which. Patient has new epigastric pain which started around the time of these events. He could have NSAID related pain, gastritis, ulcer. I started a twice daily PPI. Reluctant to discontinue his aspirin due to coronary disease and A. fib and Celebrex due to long-term use related to rheumatoid arthritis. Have ordered H. pylori stool antigen. Will reevaluate in the morning to see if PPI administration assist with epigastric pain. Upper endoscopy may be indicated. (4) Rheumatoid arthritis Is this a current diagnosis for this admission?: Yes Plan: Patient has chronic pain related to his RA. Have restarted his NSAID. Have also started his methotrexate and Plaquenil. (6) Coronary artery disease Qualifiers: Coronary Disease-Associated Artery/Lesion type: [place] artery Is this a current diagnosis for this admission?: Yes Plan: Cardiac home meds have been restarted. Patient is chest pain-free. He is being admitted on telemetry. (7) Congestive heart failure Qualifiers: Heart failure type: systolic Heart failure chronicity: acute on chronic Qualified Code(s): I50.23 - Acute on chronic systolic (congestive) heart failure Is this a current diagnosis for this admission?: Yes Plan: I do not see a recent echocardiogram in the computer. After a thorough search if I do not see one from the past 6 months will reorder echo. Will diuresis with Lasix 20 mg IV 1 and monitor. Not on Lasix as an outpatient per the list given to me by the family despite what they told me in the history of present illness. Other home cardiac meds have been restarted. (8) Atrial fibrillation Qualifiers: Atrial fibrillation type: chronic Qualified Code(s): I48.2 - Chronic atrial fibrillation Is this a current diagnosis for this admission?: Yes Plan: Continue beta-devin, continue baby aspirin. Xarelto has been discontinued secondary to frequent falls (9) Frequent falls Is this a current diagnosis for this admission?: Yes Plan: Fall risk/precautions in place. Patient has PT and OT in the home which will new on discharge. He has had multiple evaluations for falls per the family. - Time Time Spent: Greater than 70 Minutes Medications reviewed and adjusted accordingly: Yes Anticipated discharge: Home with Homehealth Within: within 48 hours - Inpatient Certification Based on my medical assessment, after consideration of the patient's comorbidities, presenting symptoms, or acuity I expect that the services needed warrant INPATIENT care.: Yes I certify that my determination is in accordance with my understanding of Medicare's requirements for reasonable and necessary INPATIENT services [42 CFR 412.3e].: Yes Medical Necessity: Need Close Monitoring Due to Risk of Patient Decompensation, Need For Continuous Telemetry Monitoring, Risk of Complication if Not Cared For in Hospital
[2017-11-20] MEDS ORDERED: FUROSEMIDE INJ/PF 20 MG/2 ML SDV IV ONE ×2 (15:56→20:45)
[2017-11-20] MEDS ORDERED: METOPROLOL SUCCINATE 50 MG TAB.SR.24H PO ONE (16:00)
[2017-11-20] MEDS ORDERED: HYDROXYCHLOROQUINE SULFATE 200 MG TABLET PO ONE (16:00)
[2017-11-20] MEDS: LANSOPRAZOLE 30 MG TAB.RAP.DR PO SCH (19:31)
[2017-11-20] MEDS: IPRATROPIUM/ALBUTEROL 0.5-2.5 MG/3 ML AMPUL NEB SCH (19:50)
[2017-11-20] MEDS: METHYLPREDNISOLONE INJ 40 MG/1 ML SDV IV SCH (21:09)
[2017-11-20] MEDS: DOXYCYCLINE HYCLATE 100 MG TABLET PO SCH (21:09)
[2017-11-21] MEDS: LANSOPRAZOLE 30 MG TAB.RAP.DR PO SCH (05:06)
[2017-11-21 05:29] LABS: HEMATOCRIT 40.2 % (37.9-51.0); HEMOGLOBIN 13.7 g/dL (13.5-17.0); MEAN CORPUSCULAR HEMOGLOBIN 34.2 pg (27.0-33.4); MEAN CORPUSCULAR HGB CONC 34.1 g/dL (32.0-36.0); MEAN CORPUSCULAR VOLUME 101 fl (80-97); PLATELET COUNT 213 10^3/uL (150-450); RED CELL DISTRIBUTION WIDTH 14.2 % (11.5-14.0)
[2017-11-21 05:50] LABS: ANION GAP 10 (5-19); BLOOD UREA NITROGEN 22 mg/dL (7-20); CALCIUM 9.1 mg/dL (8.4-10.2); CARBON DIOXIDE 31 mmol/L (22-30); CHLORIDE 102 mmol/L (98-107); GLUCOSE 131 mg/dL (75-110); POTASSIUM 4.3 mmol/L (3.6-5.0)
[2017-11-21] MEDS: IPRATROPIUM/ALBUTEROL 0.5-2.5 MG/3 ML AMPUL NEB SCH (07:47)
[2017-11-21] MEDS ORDERED: FUROSEMIDE 80 MG TABLET PO ONE (09:43)
[2017-11-21] MEDS: METHYLPREDNISOLONE INJ 40 MG/1 ML SDV IV SCH (09:48)
[2017-11-21] MEDS: DOXYCYCLINE HYCLATE 100 MG TABLET PO SCH (09:49)
[2017-11-21] MEDS ORDERED: HYDROXYCHLOROQUINE SULFATE 200 MG TABLET PO SCH (10:00)
[2017-11-21] MEDS ORDERED: METOPROLOL SUCCINATE 50 MG TAB.SR.24H PO SCH (10:00)
[2017-11-21] MEDS ORDERED: ENOXAPARIN SODIUM INJ 40 MG/0.4 ML DISP.SYRIN SUBCUT SCH (10:00)
[2017-11-21] MEDS ORDERED: PREDNISONE 10 MG TABLET PO SCH (10:00)
[2017-11-21] MEDS ORDERED: METHOTREXATE SODIUM 2.5 MG TABLET PO SCH (10:00)
[2017-11-21] MEDS ORDERED: CELECOXIB 200 MG CAPSULE PO SCH (10:00)
[2017-11-21] MEDS ORDERED: TAMSULOSIN HCL 0.4 MG CAP.SR.24H PO SCH (10:00)
[2017-11-21] MEDS ORDERED: POLYETHYLENE GLYCOL 3350 POWDER 17 GM/1 PACKET PO SCH (10:00)
[2017-11-21 11:16] VITALS: BP 135/68
--- NOTE | 2017-11-21 14:49 | PDOC DISCHARGE SUMMARY ---
General - Admit/Disc Date/PCP Admission Date/Primary Care Provider: 11/20/17 14:39 Discharge Date: 11/21/17 - Discharge Diagnosis (1) COPD with exacerbation Is this a current diagnosis for this admission?: Yes Summary: Patient responded well to steroids, doxycycline, DuoNeb therapy. His wheezing is significantly improved today. He is being discharged on doxycycline 100 mg p.o. twice daily for 4 more days, 6 day prednisone taper, to continue his duo nebs and other inhalers at home. (2) Acute bronchitis Is this a current diagnosis for this admission?: Yes Summary: Symptoms improved with doxycycling 100 mg p.o. twice daily, to continue for a total of 5 days. (3) Epigastric pain Is this a current diagnosis for this admission?: Yes Summary: This is resolved today. I started the patient on a PPI twice daily as that had recently been discontinued. Also the patient had some emesis yesterday and epigastric pain resolved subsequent to that. As well, the patient is now on prednisone along with Celebrex and aspirin which could be causing gastritis versus an early peptic ulcer disease. There has been no hematemesis. Family will monitor his symptoms closely and seek medical care if this problem recurs. We also discussed that he has a AAA and expansion of the aneurysm can cause abdominal pain and/or back pain, family is aware, they know to seek medical care if they are concerned. He has follow-up for the AAA with repeat ultrasound next week. On discharge I instructed him to restart his omeprazole at 20 mg p.o. twice daily for 7 days and then to reduce to 20 mg daily. He will discuss this change with his doctor. (4) Rheumatoid arthritis Is this a current diagnosis for this admission?: Yes Summary: Patient's medications were not changed during the hospitalization, his RA is stable and he will continue with his Celebrex, methotrexate, Plaquenil. (5) Chronic pain Is this a current diagnosis for this admission?: Yes Summary: Later to rheumatoid arthritis, no medication changes made. (6) Coronary artery disease Is this a current diagnosis for this admission?: Yes Summary: Stable. Patient discharged on his regular cardiac meds. (7) Congestive heart failure Is this a current diagnosis for this admission?: Yes Summary: Patient responded well to Lasix 20 mg IV 1. His shortness of breath is resolved, his lower extremity swelling is resolved. He will continue his Lasix 80 mg daily in the home. (8) Atrial fibrillation Is this a current diagnosis for this admission?: Yes Summary: Continue beta-kingsley for rate control. Patient is no longer on anticoagulation secondary to frequent falls. His doctor put him on a baby aspirin. This will continue. (9) Frequent falls Is this a current diagnosis for this admission?: Yes Summary: Patient has been improving with OT and PT in the home and this will resume on discharge. Etiology of falls not entirely clear though it is probably multifactorial given his age, weakness, hearing problems, rheumatoid arthritis, early dementia. - Additional Information Resuscitation Status: Do Not Resuscitate Discharge Diet: Cardiac, Other (Comments) Discharge Activity: Balance Activity w/Rest Prescriptions: Doxycycline Hyclate [Vibramycin 100 mg Tablet] 100 mg PO Q12 4 Days #8 tablet Prednisone [Deltasone 10 mg Tablet] 10 mg PO DAILY 6 Days #14 tablet Home Medications: Albuterol Sulfate [Albuterol Sulfate 2.5mg/3 mL] 1 vial IH Q6 11/20/17 Donepezil HCl [Aricept] 10 mg PO DAILY 11/20/17 Folic Acid [Folvite 1 mg Tablet] 1 mg PO DAILY 11/20/17 Furosemide [Lasix 40 mg Tablet] 40 mg PO QAM 11/20/17 Gabapentin [Neurontin 100 mg Capsule] 200 mg PO HSP PRN 11/20/17 Lisinopril [Prinivil] 20 mg PO DAILY 11/20/17 Magnesium Oxide [Mag-Ox 400 mg Tablet] 400 mg PO DAILY 11/20/17 Methotrexate Sodium [Methotrexate] 15 mg PO FR@1000 11/20/17 Metoprolol Succinate [Toprol Xl 50 mg Tab.sr] 75 mg PO DAILY 11/20/17 Omeprazole 20 mg PO DAILY 11/20/17 Tamsulosin HCl [Flomax 0.4 mg Cap.sr] 0.4 mg PO DAILY 11/20/17 Celecoxib [Celebrex 200 mg Capsule] 200 mg PO DAILY capsule 11/21/17 Doxycycline Hyclate [Vibramycin 100 mg Tablet] 100 mg PO Q12 4 Days #8 tablet Polyethylene Glycol 3350 [Miralax Powder 17 gm/Packet] 17 gm PO DAILY powd.pack 11/21/17 Prednisone [Deltasone 10 mg Tablet] 10 mg PO DAILY 6 Days #14 tablet 11/21/17 History of Present Illness Patient complains of: Wheezing, swelling History of Present Illness: OBDULIA POP is a 87 year old male with past medical history significant for coronary artery disease, heart failure, COPD who has been cared for at home by a large family and also recently he has had home health nursing related to underlying medical problems including rheumatoid arthritis. About 2 weeks ago the patient reports that his doctor decreased his Lasix from 80 mg dosing to 40 mg dosing. Shortly thereafter he began to have wheezing and swelling in his legs and feet. Secondary to the wheezing causing respiratory distress in the home one day his home health nurse called EMS. The patient refused to go to the ER. That is when his doctor increased the Lasix back to 80 mg. Since then he has felt a little bit better but the wheezing has persisted. No chest pain. He has been coughing more and more over the past 2 weeks with green brown phlegm now. He has had night sweats for the past 2 weeks and no documented fever, daughter reports they have been checking temperatures and he has had no fever. Today his breathing got so bad that the family decided to bring him into the ER. Secondary to COPD exacerbation, possible bronchitis, heart failure exacerbation and is being admitted to the hospitalist service. Regarding the wheezing, it improved with increase in Lasix. It is moderate in intensity. It also improved with breathing treatments. Nothing in particular seems to be making it worse. It has been associated with cough. I am also told that he has been falling lately. He is not losing consciousness around the time of the falls. He remembers all of the events. No dizziness associated with the falls. He has been walking with a walker lately. He has PT and OT in the home and there is a discussion as to whether or not he has a parkinsonism. Today in the ER he had an ear lavage and a significant amount of cerumen was removed and his hearing improved greatly after this. Decreased hearing could be contributing to the falls. Physical Exam Vital Signs: Temp Pulse Resp BP Pulse Ox 99.1 F 75 18 135/68 H 92 11/21/17 11:14 11/21/17 11:14 11/21/17 11:14 11/21/17 11:14 11/21/17 11:14 Intake & Output 11/20/17 11/21/17 11/22/17 06:59 06:59 06:59 Intake Total 733 Output Total 650 Balance 83 Weight 87 kg General appearance: PRESENT: no acute distress, cooperative Head exam: PRESENT: atraumatic, normocephalic Eye exam: PRESENT: EOMI. ABSENT: scleral icterus Ear exam: PRESENT: normal external ear exam Mouth exam: PRESENT: neck supple, tongue midline Neck exam: ABSENT: lymphadenopathy, tenderness Respiratory exam: PRESENT: unlabored, wheezes - Very mild expiratory. ABSENT: rales, rhonchi Cardiovascular exam: PRESENT: irregular rhythm. ABSENT: systolic murmur, tachycardia Pulses: PRESENT: normal radial pulses GI/Abdominal exam: PRESENT: normal bowel sounds, soft. ABSENT: distended, guarding Extremities exam: PRESENT: other - Trace bilateral ankle edema Musculoskeletal exam: PRESENT: other - [place]-neck deformities evident, rheumatoid nodules prominent Neurological exam: PRESENT: alert, awake, oriented to person, oriented to place , oriented to situation, CN II-XII grossly intact, other - Short-term memory impairment evident Psychiatric exam: PRESENT: appropriate affect. ABSENT: anxious Skin exam: PRESENT: dry, intact, warm Results Laboratory Results: 11/21/17 05:05 11/21/17 05:05 11/21/17 11/21/17 05:05 05:05 WBC 9.0 RBC 4.00 L Hgb 13.7 Hct 40.2 MCV 101 H MCH 34.2 H MCHC 34.1 RDW 14.2 H Plt Count 213 Sodium 143.0 Potassium 4.3 Chloride 102 Carbon Dioxide 31 H Anion Gap 10 BUN 22 H Creatinine 0.93 Est GFR ( Amer) > 60 Est GFR (Non-Af Amer) > 60 Glucose 131 H Calcium 9.1 Magnesium 2.0 Impressions: Chest X-Ray 11/20/17 09:19 IMPRESSION: Stable, chronic changes. Qualifiers - * PATIENT BEING DISCHARGED WITH ANY OF THE FOLLOWING DIAGNOSIS: Heart Failure HF Pt being discharged on ACEI for LVEF less than 40%?: Yes HF Pt being discharged on ARBS for LVEF less than 40%?: No Reason(s) for not prescribing ARBS:: Not indicated HF Pt with Afib discharged with Warfarin?: No Reason(s) for not prescribing Warfarin:: Tx not tolerated - Patient's physician has placed him on aspirin HF Pt discharged on evidence-based Beta Kingsley:: Yes Plan Discharge Plan: Patient will be discharged home into the care of his family. He has close follow-up planned with his vascular surgeon to have his AAA regular evaluation, he will also see his dance director and his primary care doctor for follow-up. He and his family know to return to medical care with concerning problems. Time Spent: Greater than 30 Minutes
== END 2017-11-21 11:05 | disposition home health service (06) | DRG 190 ==
LOC: ER 08:34 → EH 14:39 → 4N 16:58
PROVIDERS: ADMIT Internal Medicine; ATTEND Internal Medicine
PROC: 3E0F73Z Introduction of Anti-inflammatory into Respiratory Tract, Via Natural or Artificial Opening (ICD-10-PCS; principal; 2017-11-20)
DX: J44.1 Chronic obstructive pulmonary disease with (acute) exacerbation (principal); I50.23 Acute on chronic systolic (congestive) heart failure; J44.0 Chronic obstructive pulmonary disease with (acute) lower respiratory infection; J20.9 Acute bronchitis, unspecified; M06.9 Rheumatoid arthritis, unspecified; Z66 Do not resuscitate; I48.2 Chronic atrial fibrillation; I25.10 Atherosclerotic heart disease of native coronary artery without angina pectoris; I11.0 Hypertensive heart disease with heart failure; I73.9 Peripheral vascular disease, unspecified; F03.90 Unspecified dementia, unspecified severity, without behavioral disturbance, psychotic disturbance, mood disturbance, and anxiety; Z91.81 History of falling; Z79.899 Other long term (current) drug therapy; Z85.118 Personal history of other malignant neoplasm of bronchus and lung; Z98.42 Cataract extraction status, left eye; Z98.41 Cataract extraction status, right eye; Z86.73 Personal history of transient ischemic attack (TIA), and cerebral infarction without residual deficits; Z85.820 Personal history of malignant melanoma of skin; Z95.1 Presence of aortocoronary bypass graft; Z90.2 Acquired absence of lung [part of]; Z88.6 Allergy status to analgesic agent; Z87.891 Personal history of nicotine dependence; Z82.49 Family history of ischemic heart disease and other diseases of the circulatory system
CPT/HCPCS: 36415; 71045; 80048; 80053; 81001; 82550; 83735; 84484; 85025; 85027; 93005; 93010; 94640; 99285; J1940; J2920; J3490; J7512; J7620

== ENCOUNTER 2019-09-30 18:00 | Emergency (ER) | payer BC, MEDICARE ==
[2019-09-30] MEDS ORDERED: FENTANYL CITRATE INJ/PF 100 MCG/2 ML AMPUL IV ONE ×2 (19:11→21:37)
[2019-09-30] MEDS ORDERED: ONDANSETRON HCL INJ/PF 4 MG/2 ML SDV IV ONE (19:11)
[2019-09-30 19:44] LABS: ABSOLUTE BASOPHILS # (AUTO) 0.1 10^3/uL (0.0-0.2); ABSOLUTE EOSINOPHILS # (AUTO) 0.2 10^3/uL (0.0-0.6); ABSOLUTE LYMPHOCYTES (AUTO) 0.8 10^3/uL (0.5-4.7); ABSOLUTE MONOCYTES (AUTO) 0.7 10^3/uL (0.1-1.4); ABSOLUTE NEUT (AUTO) 10.1 10^3/uL (1.7-8.2); BASOPHILS % (AUTO) 0.6 % (0-2); EOSINOPHILS % (AUTO) 1.3 % (0-6); HEMATOCRIT 40.6 % (37.9-51.0); HEMOGLOBIN 14.2 g/dL (13.5-17.0); LYMPHOCYTES % (AUTO) 6.5 % (13-45); MEAN CORPUSCULAR HEMOGLOBIN 33.7 pg (27.0-33.4); MEAN CORPUSCULAR HGB CONC 34.9 g/dL (32.0-36.0); MEAN CORPUSCULAR VOLUME 97 fl (80-97); MONOCYTES % (AUTO) 5.9 % (3-13); PLATELET COUNT 155 10^3/uL (150-450); RED CELL DISTRIBUTION WIDTH 15.2 % (11.5-14.0); SEGMENTED NEUTROPHILS % (AUTO) 85.7 % (42-78); TOTAL CELLS COUNTED % (AUTO) 100 %; WHITE BLOOD COUNT 11.8 10^3/uL (4.0-10.5)
[2019-09-30 19:50] LABS: INTERNATIONAL RATION (INR) 1.17
[2019-09-30 19:51] LABS: PARTIAL THROMBOPLASTIN TIME 31.3 SEC (23.5-35.8)
[2019-09-30 20:14] LABS: ALBUMIN 3.1 g/dL (3.5-5.0); ALKALINE PHOSPHATASE 104 U/L (38-126); ASPARTATE AMINO TRANSFERASE 23 U/L (17-59); BILIRUBIN,DIRECT 0.5 mg/dL (0.0-0.4); BLOOD UREA NITROGEN 27 mg/dL (7-20); CALCIUM 8.5 mg/dL (8.4-10.2); CARBON DIOXIDE 37 mmol/L (22-30); CHLORIDE 99 mmol/L (98-107); GLUCOSE 125 mg/dL (75-110); POTASSIUM 3.7 mmol/L (3.6-5.0); TOTAL PROTEIN 6.7 g/dL (6.3-8.2)
[2019-09-30 20:20] LABS: ANION GAP 5 (5-19)
--- NOTE | 2019-09-30 20:55 | RADIOLOGY REPORT (SQ) ---
EXAM DESCRIPTION: [facility]: XR CHEST 1 VIEW CLINICAL HISTORY: 89 years Male; cough; COMPARISON: None. FINDINGS: Lungs are clear, with no focal infiltrate, pneumothorax, or pleural effusion. Sternal wires are noted. There is aortic calcification. Superior mediastinum is slightly wider than prior exam, although this may be partially due to positioning. Cardiac size is within normal limits for positioning. Bony structures are unremarkable. IMPRESSION: 1. No acute pulmonary findings. 2. Previous sternotomy 3. Superior mediastinum difficult to assess due to positioning.
--- NOTE | 2019-09-30 20:56 | RADIOLOGY REPORT (SQ) ---
EXAM DESCRIPTION: AP pelvis with one additional view of right hip RadLex: XR HIP 2 OR MORE VIEWS Views: 2 CLINICAL HISTORY: 89 years Male; fall/trauma; COMPARISON: None. FINDINGS: An acute fracture through the intertrochanteric region of the proximal right femur, with slight varus angulation. There is also slight medial displacement of the lesser trochanter fragment. No dislocation of the femoral head. Pelvic alignment remains anatomic. Vascular calcifications are noted. IMPRESSION: 1. Acute right femoral intratrochanteric fracture
--- NOTE | 2019-09-30 21:50 | RADIOLOGY REPORT (SQ) ---
EXAM DESCRIPTION: Right hand Rad[facility]: XR HAND 3 OR MORE VIEWS Views: 3 CLINICAL HISTORY: 89 years Male; injury; COMPARISON: None. FINDINGS: There is dislocation at the 5th MCP joint, with nearly 90 degree medial angulation of the 5th proximal phalanx, with anterior dislocation and slight proximal displacement of the proximal head of the 5th proximal phalanx. No associated fracture is identified, although postreduction radiographs should be considered. There is chronic partial subluxation of the 1st MCP joint, with some remodeling. Chronic degenerative changes are noted in the carpal bones. There is also joint space narrowing and mild reactive osteophyte formation in the 3rd DIP joint. No periarticular erosions. No acute periosteal reaction. IMPRESSION: 1. 5th MCP joint dislocation 2. Chronic changes as described
--- NOTE | 2019-09-30 22:18 | EKG REPORT ---
SEVERITY:- ABNORMAL ECG - ATRIAL FIBRILLATION, V-RATE 61-83 RBBB AND LAFB : Confirmed by: Bert Keane MD 30-Sep-2019 22:17:23
--- NOTE | 2019-09-30 23:34 | ER Document Report ---
ED General - General Chief Complaint: Hip Injury Stated Complaint: RIGHT HIP PAIN Time Seen by Provider: 09/30/19 18:53 Primary Care Provider: VI SAXENA MD [Primary Care Provider] - Follow up as needed TRAVEL OUTSIDE OF THE [place] IN LAST 30 DAYS: No - HPI Notes: 89-year-old male followed by Dr. Vi Saxena at [facility] seen at this time for injury to right hip resulting from fall at home. This gentleman has mild dementia, advanced rheumatoid arthritis, CAD with previous CABG and past history of lung cancer. He also has had a history of atrial fibrillation. He is not currently anticoagulated other than a daily aspirin which he takes. He uses a walker to ambulate apparently lost his balance as he was trying to go into the bathroom around 5:15 PM family subsequently brought him here. He complains of severe pain of his right hip. He also injured the small finger of his right hand at that time. He denies neck pain. He denies any head trauma. Fall was witnessed by his son-in-law who was at home with him. - Related Data Allergies/Adverse Reactions: tramadol Allergy (Verified 09/30/19 18:20) Home Medications: folic acid, celecoxib, metoprolol succ er, hydroxchloroquine, symbicort, ventolin, tamsulosin, donepezil, lasix, quetiapine, asa. spiriva, omeprazole, methotrexate Past Medical History - General Information source: Patient, Relative, [facility] Records, Outside Facility Records - Social History Smoking Status: Former Smoker Chew tobacco use (# tins/day): No Frequency of alcohol use: None Drug Abuse: None Family History: None, Other - kidney stones. 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 HENT: Negative for sore throat. Eyes: Negative for visual changes. Cardiovascular: Negative for chest pain. Respiratory: Negative for shortness of breath. Gastrointestinal: Negative for abdominal pain, vomiting or diarrhea. Genitourinary: Negative for dysuria. Musculoskeletal: Negative for back pain. Skin: Negative for rash. Neurological: Negative for headaches, focal weakness or numbness. 10 point ROS negative except as marked above and in HPI. Physical Exam - Vital signs Vitals: Temp Resp BP Pulse Ox 98.5 F 18 105/67 98 09/30/19 18:10 09/30/19 18:10 09/30/19 18:10 09/30/19 18:10 - Notes Notes: GENERAL: Frail elderly man who is lying in a position on his right side and refusing to move initially because of pain. SKIN: Good turgor. Scattered ecchymoses of all 4 extremities. HEAD: Normocephalic atraumatic. EYES: PERRLA. EOMI. Conjunctivae and sclerae clear. EARS: CANALS AND TMS CLEAR. NOSE: CLEAR. MOUTH: Moist mucosa. Good dentition. No stridor or edema. No drooling. NECK: Supple. No masses or thyromegaly. No adenopathy. Carotids 2+ without bruits. No JVD. BACK: Symmetrical without tenderness. CHEST: Healed thoracotomy scar. Respirations unlabored. Breath sounds clear and symmetrical. HEART: Healed CABG scar. Regular rhythm. No murmur gallop or rub. ABDOMEN: Soft nontender without masses, organomegaly or rebound. Bowel sounds normally active. No bruits. GENITALIA: Deferred. EXTREMITIES: Patient is exquisitely tender over right hip joint and resists movement in all planes. Extremity is mildly shortened. Cap refill less than 1.5 seconds. Dorsalis pedis and posterior tibial pulses 2+ and symmetrical. NEUROLOGICAL: GCS 15. Alert and oriented x3. Fluent speech. Cranial nerves II through XII intact. Sensorimotor and cerebellar normal. Normal tone. PSYCHIATRIC: Appropriate affect. Course - Re-evaluation Re-evalutation: 09/30/19 23:34 Plain imaging demonstrates an intertrochanteric fracture of the right hip joint. Patient was given some IV fentanyl with adequate control of his pain. He was also noted to have a subluxation/dislocation of the MP joint of the right fifth finger. Limited reduction was attempted unsuccessfully. Distal circulation to the finger and neurologic function are intact. Family has requested that we [facility] were all of his specialty care has been centered previously. Case was discussed with Dr. Мария Causey (orthopedic surgery) at that facility who accepted transfer of the case. - Vital Signs Vital signs: Temp Pulse Resp BP Pulse Ox 98.2 F 20 126/62 H 98 09/30/19 21:02 09/30/19 21:02 09/30/19 21:02 09/30/19 21:02 - Laboratory Result Diagrams: 09/30/19 19:30 09/30/19 19:30 Laboratory results interpreted by me: 09/30/19 09/30/19 19:30 19:30 WBC 11.8 H RBC 4.20 L MCH 33.7 H RDW 15.2 H Lymph % (Auto) 6.5 L Absolute Neuts (auto) 10.1 H Seg Neutrophils % 85.7 H Carbon Dioxide 37 H BUN 27 H Glucose 125 H Total Bilirubin 2.0 H Direct Bilirubin 0.5 H Albumin 3.1 L - Diagnostic Test Radiology reviewed: Reports reviewed - EKG Interpretation by Me Additional EKG results interpreted by me: 09/30/19 23:38 Twelve-lead EKG reviewed by me contemporaneously from 2116 hrs. 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 Discharge - Discharge Clinical Impression: Dislocation right fifth finger Intertrochanteric fracture of right hip Qualifiers: Encounter type: initial encounter Fracture type: closed Fracture alignment: displaced Qualified Code(s): S72.141A - Displaced intertrochanteric fracture of right femur, initial encounter for closed fracture Condition: Fair Disposition: [facility] Referrals: VI SAXENA MD [Primary Care Provider] - Follow up as needed
[2019-10-01] MEDS ORDERED: FENTANYL CITRATE INJ/PF 100 MCG/2 ML AMPUL IV ONE (00:06)
[2019-10-01 00:07] VITALS: BP 119/55
== END 2019-10-01 00:20 | disposition short-term general hospital (02) ==
LOC: ER 18:00
DX: S63.256A Unspecified dislocation of right little finger, initial encounter (principal); S72.141A Displaced intertrochanteric fracture of right femur, initial encounter for closed fracture; M25.552 Pain in left hip; W18.30XA Fall on same level, unspecified, initial encounter; Y92.002 Bathroom of unspecified non-institutional (private) residence as the place of occurrence of the external cause; Z85.118 Personal history of other malignant neoplasm of bronchus and lung; I25.10 Atherosclerotic heart disease of native coronary artery without angina pectoris; Z95.1 Presence of aortocoronary bypass graft; Z79.899 Other long term (current) drug therapy; Z87.891 Personal history of nicotine dependence; I50.9 Heart failure, unspecified; J44.9 Chronic obstructive pulmonary disease, unspecified
CPT/HCPCS: 93005; 96376; 99285; 96374; 96375; 36415; 85025; 85610; 85730; 80053; 71045; 73130; 73502; 93010; J3010 ×2; J2405

== ENCOUNTER 2019-11-24 20:14 | Inpatient (IN) | payer MEDICARE, BC ==
--- NOTE | 2019-11-24 21:30 | ER Document Report ---
ED General - General Chief Complaint: Fever Stated Complaint: FEVER/BODY CHILLS Time Seen by Provider: 11/24/19 21:18 Primary Care Provider: VI COLLIER MD [Primary Care Provider] - Follow up as needed Information source: Patient Notes: RN notes pt presented to ED via EMS with a c/o of a fever starting at approx 1500 today. fever stated to be 101.9. pt has a history of dementia and can tell me who he is and where he is, but does not understand circumstances of why. ems reported giving pt 650 mg tylenol, and upon recheck of temp in ED, it is 98.9. pt does have history of right hip surgery approx 3 months ago, incision does not appear raised or red, no drainage coming from incision. family of pt also reports history of a fib, pt placed on monitor and monitor is reading a fib. my notes 89-year-old male arrives by EMS with fever that began this afternoon. Nursing staff took the history from family but patient is poor historian and says he is fine and does not know why he is here. Patient had a CABG in the distant past and 3 months ago had a right hip THR but the incisions here appear to be well-healed. He denies any diarrhea cough or cold sore throat cephalgia a nd denies any fever and yet he feels very warm to touch. TRAVEL OUTSIDE OF THE [place] IN LAST 30 DAYS: No - HPI Onset: This afternoon Onset/Duration: Sudden, Persistent, Worse Severity: Mild Associated symptoms: Fever Exacerbated by: Denies Relieved by: Denies Similar symptoms previously: No Recently seen / treated by doctor: No - Related Data Allergies/Adverse Reactions: tramadol Allergy (Verified 09/30/19 18:20) Past Medical History - General Information source: Patient - Social History Smoking Status: Former Smoker Cigarette use (# per day): No Chew tobacco use (# tins/day): No Smoking Education Provided: No Frequency of alcohol use: None Drug Abuse: None Lives with: Family Family History: None, Other - kidney stones. 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, osteo Psychiatric Medical History: Reports: Hx Dementia - Mild dementia, type unknown Denies: Hx Depression Past Surgical History: Reports: Hx Abdominal Surgery, Hx Cardiac Surgery - CABG, Hx Coronary Artery Bypass Graft, Hx Herniorrhaphy - Cataract surgery, Other - Left lower lung lobectomy for lung cancer - Immunizations Hx Pneumococcal Vaccination: 07/27/09 Review of Systems - Review of Systems Constitutional: See HPI, Fever, Malaise EENT: No symptoms reported Cardiovascular: No symptoms reported Respiratory: No symptoms reported Gastrointestinal: No symptoms reported Genitourinary: No symptoms reported Male Genitourinary: No symptoms reported Musculoskeletal: No symptoms reported Skin: No symptoms reported Hematologic/Lymphatic: No symptoms reported Neurological/Psychological: No symptoms reported Physical Exam - Vital signs Vitals: Resp Pulse Ox 26 H 93 11/24/19 20:21 11/24/19 20:21 Interpretation: Tachypneic - General General appearance: Alert - HEENT Head: Normocephalic, Atraumatic Eyes: Normal Pupils: PERRL Mouth/Lips: Normal Mucous membranes: Dry Pharynx: Normal Neck: Normal - Respiratory Respiratory status: Tachypnea, Other - And yet patient speaks in full sentences and denies any shortness of breath Chest status: Nontender Breath sounds: Rales Chest palpation: Normal - Cardiovascular Rhythm: Tachycardia Heart sounds: Normal auscultation Murmur: No - Abdominal Inspection: Normal Distension: No distension Bowel sounds: Normal Tenderness: Nontender Organomegaly: No organomegaly - Genitourinary Tenderness: Nontender Scrotum: Normal - Extremities General upper extremity: Normal inspection General lower extremity: Edema - Neurological Neuro grossly intact: Yes Cognition: Confused Doug Coma Scale Eye Opening: Spontaneous [place] Coma Scale Verbal: Oriented - to self Speech: Normal Cranial nerves: Normal Cerebellar coordination: Normal Motor strength normal: LUE, RUE, LLE, RLE - Psychological Associated symptoms: Normal affect - Skin Skin Temperature: Hot Skin Moisture: Dry Course - Vital Signs Vital signs: Temp Pulse Resp BP Pulse Ox 98.9 F 28 H 112/59 L 92 11/24/19 20:25 11/24/19 20:25 11/24/19 20:25 11/24/19 20:25 - Laboratory Result Diagrams: 11/24/19 20:00 11/24/19 20:00 Laboratory results interpreted by me: 11/24/19 11/24/19 11/24/19 20:00 20:00 20:00 WBC 18.9 H RBC 4.19 L MCV 99 H RDW 16.7 H Seg Neuts % (Manual) 88 H Band Neutrophils % 2 L Lymphocytes % (Manual) 2 L Abs Neuts (Manual) 17.0 H Abs Lymphs (Manual) 0.4 L Sodium 136.8 L BUN 21 H Glucose 124 H Alkaline Phosphatase 136 H Creatine Kinase 24 L NT-Pro-B Natriuret Pep 1990 H Albumin 3.1 L Urine Protein Urine Urobilinogen 11/24/19 23:12 WBC RBC MCV RDW Seg Neuts % (Manual) Band Neutrophils % Lymphocytes % (Manual) Abs Neuts (Manual) Abs Lymphs (Manual) Sodium BUN Glucose Alkaline Phosphatase Creatine Kinase NT-Pro-B Natriuret Pep Albumin Urine Protein 30 H Urine Urobilinogen 2.0 H - Diagnostic Test Radiology reviewed: Reports reviewed - left annular lesions - EKG Interpretation by Me EKG shows normal: Sinus rhythm Rate: Normal Rhythm: NSR Critical Care Note - Critical Care Note Total time excluding time spent on procedures (mins): 90 Comments: I discussed this case with Dr. Shaun Ramos who advised the medical floor Discharge - Discharge Clinical Impression: Tachypnea on examination Fever Qualifiers: Fever type: due to other condition Qualified Code(s): R50.81 - Fever presenting with conditions classified elsewhere Pneumonia Qualifiers: Pneumonia type: due to unspecified organism Laterality: left Lung location: lower lobe of lung Qualified Code(s): J18.9 - Pneumonia, unspecified organism Condition: Fair Disposition: ADMITTED INPATIENT Admitting Provider: Gertrudis (Hospitalist) Unit Admitted: Medical Floor Referrals: VI COLLIER MD [Primary Care Provider] - Follow up as needed
[2019-11-24 21:52] LABS: ALBUMIN 3.1 g/dL (3.5-5.0); ALKALINE PHOSPHATASE 136 U/L (38-126); ANION GAP 8 (5-19); ASPARTATE AMINO TRANSFERASE 26 U/L (17-59); BILIRUBIN,DIRECT 0.1 mg/dL (0.0-0.4); BILIRUBIN,TOTAL 1.2 mg/dL (0.2-1.3); BLOOD UREA NITROGEN 21 mg/dL (7-20); CALCIUM 8.8 mg/dL (8.4-10.2); CARBON DIOXIDE 28 mmol/L (22-30); CHLORIDE 101 mmol/L (98-107); CREATINE KINASE 24 U/L (55-170); GLUCOSE 124 mg/dL (75-110); POTASSIUM 4.3 mmol/L (3.6-5.0); TOTAL PROTEIN 6.3 g/dL (6.3-8.2)
[2019-11-24 22:00] LABS: HEMATOCRIT 41.5 % (37.9-51.0); MEAN CORPUSCULAR HEMOGLOBIN 33.4 pg (27.0-33.4); MEAN CORPUSCULAR HGB CONC 33.7 g/dL (32.0-36.0); MEAN CORPUSCULAR VOLUME 99 fl (80-97); PLATELET COUNT 152 10^3/uL (150-450); RED BLOOD COUNT 4.19 10^6/uL (4.35-5.55); RED CELL DISTRIBUTION WIDTH 16.7 % (11.5-14.0); WHITE BLOOD COUNT 18.9 10^3/uL (4.0-10.5)
[2019-11-24 22:15] LABS: ABSOLUTE LYMPHOCYTES# (MANUAL) 0.4 10^3/uL (0.5-4.7); ABSOLUTE MONOCYTES # (MANUAL) 0.9 10^3/uL (0.1-1.4); BAND NEUTROPHILS % (MANUAL) 2 % (3-5); BASOPHILS % (MANUAL) 1 % (0-2); EOSINOPHILS % (MANUAL) 2 % (0-6); LYMPHOCYTES % (MANUAL) 2 % (13-45); MONOCYTES % (MANUAL) 5 % (3-13); SEGMENTED NEUTROPHILS % (MAN) 88 % (42-78); TOTAL CELLS COUNTED 100
[2019-11-24 22:16] LABS: PLATELET COMMENT ADEQUATE; TOXIC VACUOLATION PRESENT
--- NOTE | 2019-11-24 22:35 | RADIOLOGY REPORT (SQ) ---
EXAM DESCRIPTION: XR CHEST 1 VIEW COMPLETED DATE/TME: 11/24/2019 21:33 CLINICAL HISTORY: 89 years, Male, fever COMPARISON: 1. EXAM DESCRIPTION: CLINICAL HISTORY: fever COMPARISON: None. FINDINGS: Single view of the chest is submitted. Cardiac silhouette is mildly enlarged. Sternotomy wires are present. There is bilateral pulmonary edema. Clips project in the left midlung. No consolidations are seen in the right lung but there is consolidation at the left lung base with small left pleural effusion. There is also consolidation at the left pulmonary apex. IMPRESSION: Left lung consolidations. Bilateral pulmonary edema.
[2019-11-24 23:29] LABS: APPEARANCE,URINE SLIGHTLY-CLOUDY; BILIRUBIN,URINE NEGATIVE (NEGATIVE); COLOR,URINE AMBER; GLUCOSE, URINE NEGATIVE (NEGATIVE); KETONES,URINE NEGATIVE (NEGATIVE); LEUKOCYTE ESTERASE,URINE NEGATIVE (NEGATIVE); NITRITE,URINE NEGATIVE (NEGATIVE); PROTEIN,URINE 30 mg/dL (NEGATIVE); URINE SPECIFIC GRAVITY 1.028
[2019-11-24] MEDS ORDERED: CEFTRIAXONE INJ 1000 MG VIAL IV ONE (23:40)
[2019-11-24] MEDS ORDERED: AZITHROMYCIN INJ 500 MG VIAL IV ONE (23:41)
[2019-11-25] MEDS ORDERED: ACETAMINOPHEN 325 MG TABLET PO PRN (00:25)
[2019-11-25] MEDS ORDERED: GUAIFENESIN SYRP 200 MG/10 ML UDC PO PRN (00:25)
[2019-11-25] MEDS ORDERED: MAGNESIUM HYDROXIDE SUSP 30 ML UDCUP PO PRN (00:30)
[2019-11-25] MEDS ORDERED: MAG HYDROX/AL HYDROX/SIMETH SUSP 30 ML UDCUP PO PRN (00:30)
[2019-11-25] MEDS ORDERED: MORPHINE SULFATE 10 MG/ML INJ IV PRN ×3 (00:32)
[2019-11-25] MEDS: RINGERS SOLUTION,LACTATED 1,000 ML IV PRN (01:35)
--- NOTE | 2019-11-25 02:44 | PDOC H&P ---
History of Present Illness Admission Date/PCP: 11/24/2019 23:57 VI COLLIER MD Patient complains of: Fever History of Present Illness: OBDULIA POP is a 89 year old male presenting the emergency room with an acute history of fever. Patient was sent to the emergency room via EMS by his family after they noted a fever of 101.9 F at home and administered Tylenol to the patient. Family had also noted an associated tachypnea. Family had not noted any other associated or accompanying signs and symptoms. Family reports numerous prior similar episodes related to exacerbations of COPD and pneumonia. Family denies any aggravating or ameliorating factors for his fever. Patient has dementia and though he is oriented to person he has otherwise poorly oriented and not a reliable historian for purposes of the medical record. In the emergency room the patient was found to have tachypnea, a left-sided pneumonia and a leukocytosis of 18,900. He was subsequently admitted to the [facility] for further evaluation treatment. Past Medical History Past Medical History: Due to the patient's dementia, information presented here is from the best a vailable reliable source. Cardiac Medical History: Reports: Atrial Fibrillation, Congestive Heart Failure, Coronary Artery Disease, Hypertension, Peripheral Vascular Disease Pulmonary Medical History: Reports: Bronchitis - Chronic, Chronic Obstructive Pulmonary Disease (COPD), Pneumonia, Respiratory Failure EENT Medical History: Denies: Cataracts, Ears - Hearing aids Neurological Medical History: Denies: Hemorrhagic CVA, Ischemic CVA, Seizures Endocrine Medical History: Denies: Diabetes Mellitus Type 1, Diabetes Mellitus Type 2, Hyperthyroidism, Hypothyroidism Renal/ Medical History: Denies: Chronic Kidney Disease, Nephrolithiasis Malignancy Medical History: Reports: Lung Cancer GI Medical History: Denies: Cirrhosis, Crohn's Disease, Gastroesophageal Reflux Disease, Hepatitis, Peptic Ulcer Disease, Ulcerative Colitis Musculoskeltal Medical History: Reports: Arthritis - Rheumatoid arthritis and osteoarthritis Denies: Fibromyalgia, Gout Skin Medical History: Denies: Eczema, Psoriasis Psychiatric Medical History: Reports: Dementia - Mild-moderate dementia, type unknown Denies: Alcohol Dependency, Depression, Substance Abuse, Tobacco Dependency Traumatic Medical History: Reports: None Hematology: Denies: Anemia, Bleeding Tendencies Infectious Medical History: Reports: None Past Surgical History Past Surgical History: Due to the patient's dementia, information presented here is from the best available reliable source. Past Surgical History: Reports: Coronary Artery Bypass Graft, Herniorrhaphy - Cataract surgery, Hip Replacement, Other - Left lower lobe lobectomy for lung cancer Social History Information Source: Emergency Med Personnel, [facility] Records Lives with: Family Smoking Status: Former Smoker Electronic Cigarette use?: No Frequency of Alcohol Use: None Hx Recreational Drug Use: No Drugs: None Hx Prescription Drug Abuse: No Past Social History Note: Due to the patient's dementia, information presented here is from the best available reliable source. - Advance Directive Resuscitation Status: Full Code Surrogate healthcare decision maker:: Marilu Pop Family History Family History: CAD, Hypertension, Other - kidney stones, peripheral vascular disease, congestive heart failure. denies: DM, Malignancy Family History: Due to the patient's dementia, information presented here is from the best available reliable source. Parental Family History Reviewed: Yes Children Family History Reviewed: No Sibling(s) Family History Reviewed.: Yes Medication/Allergy Home Medications: Albuterol Sulfate [Albuterol Sulfate 2.5mg/3 mL] 1 vial IH Q6 11/20/17 Donepezil HCl [Aricept] 10 mg PO DAILY 11/20/17 Folic Acid [Folvite 1 mg Tablet] 1 mg PO DAILY 11/20/17 Furosemide [Lasix 40 mg Tablet] 40 mg PO QAM 11/20/17 Gabapentin [Neurontin 100 mg Capsule] 200 mg PO HSP PRN 11/20/17 Lisinopril [Prinivil] 20 mg PO DAILY 11/20/17 Magnesium Oxide [Mag-Ox 400 mg Tablet] 400 mg PO DAILY 11/20/17 Methotrexate Sodium [Methotrexate] 15 mg PO FR@1000 11/20/17 Metoprolol Succinate [Toprol Xl 50 mg Tab.sr] 75 mg PO DAILY 11/20/17 Omeprazole 20 mg PO DAILY 11/20/17 Tamsulosin HCl [Flomax 0.4 mg Cap.sr] 0.4 mg PO DAILY 11/20/17 Celecoxib [Celebrex 200 mg Capsule] 200 mg PO DAILY capsule 11/21/17 Doxycycline Hyclate [Vibramycin 100 mg Tablet] 100 mg PO Q12 4 Days #8 tablet 11/21/17 Polyethylene Glycol 3350 [Miralax Powder 17 gm/Packet] 17 gm PO DAILY powd.pack 11/21/17 Prednisone [Deltasone 10 mg Tablet] 10 mg PO DAILY 6 Days #14 tablet 11/21/17 Allergies/Adverse Reactions: tramadol Allergy (Verified 09/30/19 18:20) Review of Systems ROS unobtainable: Due to mental status - Dementia Physical Exam Vital Signs: Temp Pulse Resp BP Pulse Ox 98.9 F 28 H 112/59 L 92 11/24/19 20:25 11/24/19 20:25 11/24/19 20:25 11/24/19 20:25 General appearance: PRESENT: no acute distress, cooperative Head exam: PRESENT: atraumatic, normocephalic Eye exam: PRESENT: conjunctiva pink, scleral icterus. ABSENT: conjunctival injection Ear exam: PRESENT: normal external ear exam. ABSENT: bleeding, drainage Mouth exam: PRESENT: dry mucosa, neck supple Neck exam: ABSENT: JVD, thyromegaly, tracheal deviation Respiratory exam: PRESENT: prolonged expiratory phas - Mildly prolonged expiratory phase throughout all wolfe, symmetrical, tachypnea, unlabored, wheezes - Minimal expiratory wheezing noted in all wolfe. ABSENT: accessory mu scle use, rales, retraction, rhonchi Cardiovascular exam: PRESENT: irregular rhythm. ABSENT: clicks, gallop, rubs Pulses: PRESENT: normal radial pulses, normal dorsalis pedis pul Vascular exam: PRESENT: normal capillary refill. ABSENT: pallor GI/Abdominal exam: PRESENT: normal bowel sounds, soft Rectal exam: PRESENT: deferred Extremities exam: ABSENT: joint swelling, pedal edema Musculoskeletal exam: ABSENT: deformity, dislocation Neurological exam: PRESENT: alert, oriented to person, CN II-XII grossly intact. ABSENT: oriented to place, oriented to time, oriented to situation, motor sensory deficit Psychiatric exam: PRESENT: anxious, normal mood Skin exam: PRESENT: dry, intact, warm. ABSENT: jaundice, rash, urticaria Results Laboratory Results: 11/24/19 20:00 11/24/19 20:00 11/24/19 11/24/19 11/24/19 20:00 20:00 23:12 WBC 18.9 H RBC 4.19 L Hgb 14.0 Hct 41.5 MCV 99 H MCH 33.4 MCHC 33.7 RDW 16.7 H Plt Count 152 Seg Neutrophils % Not Reportable Sodium 136.8 L Potassium 4.3 Chloride 101 Carbon Dioxide 28 Anion Gap 8 BUN 21 H Creatinine 0.69 Est GFR ( Amer) > 60 Glucose 124 H Calcium 8.8 Total Bilirubin 1.2 AST 26 Alkaline Phosphatase 136 H Total Protein 6.3 Albumin 3.1 L Urine Color JIAN Urine Appearance SLIGHTLY-CLOUDY Urine pH 5.0 Ur Specific Stanton 1.028 Urine Protein 30 H Urine Glucose (UA) NEGATIVE Urine Ketones NEGATIVE Urine Blood NEGATIVE Urine Nitrite NEGATIVE Ur Leukocyte Esterase NEGATIVE Urine WBC (Auto) 4 Urine RBC (Auto) 2 11/24/19 11/24/19 11/24/19 20:00 20:00 20:00 Creatine Kinase 24 L Troponin I 0.013 NT-Pro-B Natriuret Pep 1990 H Impressions: Chest X-Ray 11/24/19 21:33 IMPRESSION: Left lung consolidations. Bilateral pulmonary edema. Assessment and Plan - Diagnosis (1) Pneumonia involving left lung Qualifiers: Pneumonia type: due to unspecified organism Lung location: unspecified part of lung Qualified Code(s): J18.9 - Pneumonia, unspecified organism Is this a current diagnosis for this admission?: Yes (2) Chronic obstructive pulmonary disease Qualifiers: COPD type: unspecified COPD Qualified Code(s): J44.9 - Chronic obstructive pulmonary disease, unspecified Is this a current diagnosis for this admission?: Yes (3) Dementia Qualifiers: Dementia type: unspecified type Dementia behavioral disturbance: without behavioral disturbance Qualified Code(s): F03.90 - Unspecified dementia without behavioral disturbance Is this a current diagnosis for this admission?: Yes (4) Atrial fibrillation Qualifiers: Atrial fibrillation type: unspecified chronic Qualified Code(s): I48.20 - Chronic atrial fibrillation, unspecified; I48.2 - Chronic atrial fibrillation Is this a current diagnosis for this admission?: Yes (5) Congestive heart failure Qualifiers: Heart failure type: systolic Heart failure chronicity: chronic Qualified Code(s): I50.22 - Chronic systolic (congestive) heart failure Is this a current diagnosis for this admission?: Yes (6) Coronary artery disease Qualifiers: Coronary Disease-Associated Artery/Lesion type: [place] artery [place] vs. transplanted heart: [place] heart Associated angina: without angina Qualified Code(s): I25.10 - Atherosclerotic heart disease of [place] coronary artery without angina pectoris Is this a current diagnosis for this admission?: Yes (7) Rheumatoid arthritis Qualifiers: Rheumatoid arthritis location: unspecified site Rheumatoid factor presence: unspecified presence Qualified Code(s): M06.9 - Rheumatoid arthritis, unspecified Is this a current diagnosis for this admission?: Yes - Plan Summary Summary: Patient be admitted to the medical service where he will receive routine supportive and symptomatic cares. He will be started on a azithromycin and cefepime for treatment of his pneumonia since he was recently hospitalized for a hip replacement. He will receive aggressive pulmonary toilet utilizing Xopenex, Atrovent and Mucomyst. He will receive supplemental oxygen as needed to maintain an adequate oxygen saturation using nasal cannula and/or other devices. He will receive Ativan 1 mg IV every 4 hours as needed anxiety or restlessness. He will use morphine sulfate 2 to 4 mg IV every 2 hours on a as needed basis for control of pain. He will be continued on his usual home medications once his medication list has been verified and reconciled. He will be treated with a cardiac diet. He will also receive supplemental IV fluid over the first 24 hours. CBCs, metabolic profiles and magnesium levels will be obtained as needed. Additional radiography will be obtained if necessary. - Time Time Spent with patient: Less than 15 minutes Medications reviewed and adjusted accordingly: Yes Anticipated discharge: Home with Homehealth - Inpatient Certification Based on my medical assessment, after consideration of the patient's comorbidities, presenting symptoms, or acuity I expect that the services needed warrant INPATIENT care.: Yes I certify that my determination is in accordance with my understanding of Medicare's requirements for reasonable and necessary INPATIENT services [42 CFR 412.3e].: Yes Medical Necessity: Significant Comorbidiites Make Outpatient Treatment Too Risk y, Need Close Monitoring Due to Risk of Patient Decompensation, Need for Nebulizer Therapy and Monitoring of Response, Need for IV Antibiotics, Risk of Complication if Not Cared For in Hospital
[2019-11-25] MEDS: LORAZEPAM INJ 2 MG/1 ML VIAL IV PRN ×2 (05:19→17:53)
[2019-11-25] MEDS: HEPARIN SOD (PORCINE) 5,000 UNIT/ML 1 ML VIAL SUBCUT SCH ×3 (05:19→22:16)
[2019-11-25] MEDS: LEVALBUTEROL HCL NEB 1.25 MG/3 ML AMPUL NEB SCH ×2 (08:24→16:09)
[2019-11-25] MEDS: IPRATROPIUM BROMIDE 0.02% NEB 0.5 MG/2.5 ML AMPUL NEB SCH ×2 (08:24→16:09)
[2019-11-25] MEDS: ACETYLCYSTEINE 20% SOLN 800 MG/4 ML VIAL.NEB NEB SCH ×2 (08:24→20:03)
--- NOTE | 2019-11-25 09:35 | RADIOLOGY REPORT (SQ) ---
EXAM DESCRIPTION: CT CHEST WITHOUT IMAGES COMPLETED DATE/TIME: 11/25/2019 8:41 am REASON FOR STUDY: Left lung infiltrates. Hx of left lung CA. COMPARISON: 11/24/2019 TECHNIQUE: CT scan performed of the chest without intravenous contrast. Images reviewed with lung, soft tissue and bone windows. Reconstructed coronal and sagittal MPR images reviewed. All images st ored on PACS. All CT scanners at this facility use dose modulation, iterative reconstruction, and/or weight based d osing when appropriate to reduce radiation dose to as low as reasonably achievable (ALARA). [facility]: Dose Right [facility]: CareDose [facility]: Dose Right [facility]: Teradose 4D [facility]: Smart [place] RADIATION DOSE: CT Rad equipment meets quality standard of care and radiation dose reduction techniq ues were employed. CTDIvol: 9.6 mGy. DLP: 380 mGy-cm. mGy. LIMITATIONS: No technical limitations. FINDINGS: LUNGS AND PLEURA: Postsurgical changes from the left upper lobectomy. There are multifoca l areas of consolidation and ground-glass attenuation within the left lower lobe. Trace left pleural effusion. Minimal right lower lobe dependent consolidation ground-glass attenuation, possibly hypov entilatory change. No significant pleural effusion. No pneumothorax. HILAR AND MEDIASTINAL STRUCTURES: Shotty mediastinal and hilar nodes. Largest precarinal node measur es 15 mm in short axis (series 2, image 22). HEART AND VASCULAR STRUCTURES: Cardiomegaly. Heavy three-vessel coronary atherosclerosis. No perica rdial effusion. No discrete aneurysm. UPPER ABDOMEN: Partially evaluated left renal low-density lesion, likely cyst and similar to CT dated 06/05/2017. THYROID AND OTHER SOFT TISSUES: No masses. No adenopathy. BONES: Progressive compression deformity of the T12 vertebral body. No other acute bony abnormality. No discrete lytic or blastic osseous lesions. Prior sternotomy. Stable HARDWARE: Sternotomy hardware. OTHER: No other significant findings. IMPRESSION: 1. 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 Patchy airspace disease throughout the left lower lobe, likely infectious/ inflammatory although underlying lesion is not entirely exclu ded. Mediastinal adenopathy, possibly reactive although again underlying malignancy is not excluded. Recommend follow-up to resolution. 2. Cardiomegaly with significant coronary atherosclerosis. 3. Progression of compression deformity of the T12 vertebral body compared to exam dated 06/05/2017. Recommend correlation with symptoms. TECHNICAL DOCUMENTATION: JOB ID: [id number] Quality ID # [id number]: Final reports with documentation of one or more dose reduction techniques (e.g., Au tomated exposure control, adjustment of the mA and/or kV according to patient size, use of iterative reconstruction technique) 2010 [employer]- All Rights Reserved Reading location - IP/workstation name: [email or web address]
[2019-11-25] MEDS ORDERED: CEFEPIME 2 GM/D5W RTU 2 GM/50 ML RTUPB IV SCH (10:00)
[2019-11-25] MEDS: CEFEPIME HCL 2 GM in DEXTROSE 5%-WATER 50 ML IV SCH ×2 (10:52→22:16)
[2019-11-25] MEDS: DOCUSATE SODIUM 100 MG CAPSULE PO SCH ×2 (10:52→17:53)
--- NOTE | 2019-11-25 11:37 | RADIOLOGY REPORT (SQ) ---
EXAM DESCRIPTION: COOKIE SWALLOW IMAGES COMPLETED DATE/TIME: 11/25/2019 11:26 am REASON FOR STUDY: hx of dysphagia dementia, pneumonia COMPARISON: None. TECHNIQUE: Videofluoroscopic swallowing examination was performed in conjunction with speech patholo gy. Videofluoroscopic imaging was obtained and reviewed and these are the findings: RADIATION DOSE: 2 minutes 31 seconds of fluoroscopy was used. 1 images saved to PACS. LIMITATIONS: None FINDINGS: The patient was brought into the fluoro room and placed upright on a modified barium swall ow chair. The patient was then given multiple consistencies mixed with barium to swallow under live fluoroscopic video guidance. According to the Speech Pathologist there was laryngeal penetration wit h thin liquids. There is deep laryngeal penetration and possible aspiration of contrast reflux from the esophagus back into the piriform sinuses. Moderate post swallow residuals. IMPRESSION: LARYNGEAL PENETRATION AND POSSIBLE ASPIRATION DESCRIBED ABOVE. PLEASE SEE SPEECH PATH OLOGIST REPORT FOR OTHER FINDINGS AND RECOMMENDATIONS. COMMENT: Quality ID 145: Final reports for procedures using fluoroscopy that document radiation exp osure indices, or exposure time and number of fluorographic images (if radiation exposure indices are not available) TECHNICAL DOCUMENTATION: JOB ID: [id number] 2010 [employer]- All Rights Reserved Reading location - IP/workstation name: [email or web address] [id number]
--- NOTE | 2019-11-25 11:39 | ST Inp Modified Barium Swallow ---
Medical Diagnosis - Medical Diagnoses Medical Diagnosis Description & ICD-10 Code(s): pneumonia involving left lung - ICD-10 Tx Diagnosis Coding (1) Dysphagia ICD-10 Code(s): R13.10 - DYSPHAGIA, UNSPECIFIED ST Inpatient [facility] [place] - General Date: 11/25/19 Date of Onset: 11/24/19 - admit date - History -: Medical - per EMR: patient admitted 11/23 with fever, found to have left side pneumonia. Prior medical history includes dementia, COPD, lung cancer with left lower lobectomy. Nursing reports that she spoke with a family member, who states the patient was receiving speech therapy home health services for swallowing deficits. There is concern that pneumonia may be aspiration related. Clinical bedside assessment completed, patient demonstrated overt signs of aspiration with thin liquid trials. MBSS then recommended. Medications: Medications Reviewed Allergies: Refer to medical record - Subjective Current Nutritional Means: PO Current PO Diet: Regular Current Symptoms: Coughing, Wet/gurgly voice, Pneumonia Pain: Patient reports, 0/5 - Objective Assessment: Upright, Left Lateral - Food Trials Food Trials Used: Thin liquids, Pureed, Regular The Patient: Was Able to Self Feed - Assessment Labial Function: Within Normal Limits Lingual Function: Within Normal Limits Mandibular Function: Within Normal Limits Dentition: Edentulous Velo-Pharyngeal Function: Unremarkable - Pharyngeal Stage Initiation of Pharyngeal Stage: Delayed Decreased Laryngeal Elevation: Yes Reduced Pressure Generation: Yes Reduced Tongue Base Retraction: No Pre-Swallowing Pooling in Valleculae: Moderate Pre-Swallowing Pooling in Pyriforms: Moderate Reduced Epiglottic Excursion: No Reduced Pharyngeal Peristalsis: No Multiple Swallows With: Cleared w/ Dry Swallow Post Swallow Residuals in Valleculae: Moderate Post Swallow Residuals in Pyriforms: Mild Post Swallow Residuals: throughout pharynx Pahryngeal Stage Comments: Patient demonstrated inconsistent swallow skills. Amount and location of pharyngeal residue after the swallow would vary from trial to trial, even on the same texture. Patient did demonstrate consistent delayed swallow reflex, and did not spontaneously swallow to clear residue. Delayed swallow resulted in penetration of thin liquid without aspiration. Mild to moderate residue was noted in valleculae and pyriform sinus at times. - Esophageal Stage Esophageal Stage Comments: After the swallow, barium was seen to re-enter the pharynx from below the UES, the patient was then seen to aspirate on this refluxed material. - Impression/Summary Laryngeal Penetration: Yes - with thin liquids during the swallow Tracheal Aspiration: yes - ONLY seen on refluxed barium Patient Presents With: Pharyngeal stage dysph., Mild-Moderate Risk of Aspiration: Moderate Risk Due To: Patient is at moderate risk of aspiration during the swallow due to some discoordination of the swallow reflex. Patient is also at risk of aspiration after the swallow due to reduced sensation of pharyngeal residue. Patient also at risk of aspirating refluxed material. - Recommendations Solid Diet Recommendations: Regular Liquid Diet Recommendations: Thin Recommended Techniques: Fully Upright During Meal, Small Bites and Sips Other Recommendations: Recommend patient have strict aspiration precautions to include fully upright for all PO, small bites and sips. Reflux precautions also recommended. Discussed findings with MD. - Time Total Time: 30 Total Timed Minutes: 30
[2019-11-25] MEDS: AZITHROMYCIN 500 MG in DEXTROSE 5%-WATER 250 ML IV SCH (13:39)
--- NOTE | 2019-11-25 14:28 | EKG REPORT ---
SEVERITY:- ABNORMAL ECG - ATRIAL FIBRILLATION, V-RATE 65-89 RIGHT BUNDLE BRANCH BLOCK : Confirmed by: Deena Claudio MD 25-Nov-2019 14:27:35
--- NOTE | 2019-11-25 18:35 | PDOC PROGRESS REPORT ---
Subjective Progress Note for:: 11/25/19 Subjective:: Patient seems to be doing quite well today all things considered. He is alert but oriented only to himself, seems to be in good spirits. Very mild crackles in his lungs on exam. No wheezing. Spoke with speech therapy who stated patient needed a modified barium swallow, and I agreed with this. Modified barium showed patient has some reflux aspiration and some delayed swallowing but no overt aspiration that would limit his diet. I have added Protonix to help with his reflux. BNP elevated, WBC elevated, chest CT showed patchy left lower lobe pneumonia with mediastinal lymphadenopathy and worsened T12 compression fracture. UA normal. Reason For Visit: LEFT SIDED PNEUMONIA Physical Exam Vital Signs: Temp Pulse Resp BP Pulse Ox 98.3 F 88 19 139/56 H 96 11/25/19 16:09 11/25/19 16:09 11/25/19 16:09 11/25/19 16:09 11/25/19 16:09 Intake & Output 11/24/19 11/25/19 11/26/19 06:59 06:59 06:59 Intake Total 0 236 Balance 0 236 Weight 64.9 kg General appearance: PRESENT: no acute distress, well-developed, well-nourished Head exam: PRESENT: atraumatic, normocephalic Eye exam: PRESENT: conjunctiva pink Mouth exam: PRESENT: moist Respiratory exam: PRESENT: crackles - Mild crackles primarily on left side. ABSENT: rales, rhonchi, wheezes Cardiovascular exam: PRESENT: RRR. ABSENT: diastolic murmur, rubs, systolic murmur GI/Abdominal exam: PRESENT: normal bowel sounds, soft. ABSENT: distended, guarding, mass, organolmegaly, rebound, tenderness Rectal exam: PRESENT: deferred Neurological exam: PRESENT: alert, awake, oriented to person Psychiatric exam: PRESENT: appropriate affect, normal mood Skin exam: PRESENT: dry, intact, warm Results Laboratory Results: 11/24/19 20:00 11/24/19 20:00 11/24/19 11/24/19 11/24/19 20:00 20:00 23:12 WBC 18.9 H RBC 4.19 L Hgb 14.0 Hct 41.5 MCV 99 H MCH 33.4 MCHC 33.7 RDW 16.7 H Plt Count 152 Seg Neutrophils % Not Reportable Sodium 136.8 L Potassium 4.3 Chloride 101 Carbon Dioxide 28 Anion Gap 8 BUN 21 H Creatinine 0.69 Est GFR ( Amer) > 60 Glucose 124 H Calcium 8.8 Total Bilirubin 1.2 AST 26 Alkaline Phosphatase 136 H Total Protein 6.3 Albumin 3.1 L Urine Color JIAN Urine Appearance SLIGHTLY-CLOUDY Urine pH 5.0 Ur Specific [place] 1.028 Urine Protein 30 H Urine Glucose (UA) NEGATIVE Urine Ketones NEGATIVE Urine Blood NEGATIVE Urine Nitrite NEGATIVE Ur Leukocyte Esterase NEGATIVE Urine WBC (Auto) 4 Urine RBC (Auto) 2 11/24/19 11/24/19 11/24/19 20:00 20:00 20:00 Creatine Kinase 24 L Troponin I 0.013 NT-Pro-B Natriuret Pep 1990 H Impressions: Chest X-Ray 11/24/19 21:33 IMPRESSION: Left lung consolidations. Bilateral pulmonary edema. Chest CT 11/25/19 00:00 IMPRESSION: 1. 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 Patchy airspace disease throughout the left lower lobe, likely infectious/ inflammatory although underlying lesion is not entirely excluded. Mediastinal adenopathy, possibly reactive although again underlying malignancy is not excluded. Recommend follow-up to resolution. 2. Cardiomegaly with significant coronary atherosclerosis. 3. Progression of compression deformity of the T12 vertebral body compared to exam dated 06/05/2017. Recommend correlation with symptoms. Modified Barium Swallow 11/25/19 00:00 IMPRESSION: LARYNGEAL PENETRATION AND POSSIBLE ASPIRATION DESCRIBED ABOVE. PLEASE SEE SPEECH PATHOLOGIST REPORT FOR OTHER FINDINGS AND RECOMMENDATIONS. Assessment and Plan - Diagnosis (1) Pneumonia involving left lung Qualifiers: Pneumonia type: due to unspecified organism Lung location: unspecified part of lung Qualified Code(s): J18.9 - Pneumonia, unspecified organism Is this a current diagnosis for this admission?: Yes Plan: Seen on chest CT and left lower lobe then mediastinal lymphadenopathy CT also showed worsened T12 compression fracture compared to prior imaging Empiric ceftriaxone/azithromycin Blood cultures (2) Chronic obstructive pulmonary disease Qualifiers: COPD type: unspecified COPD Qualified Code(s): J44.9 - Chronic obstructive pulmonary disease, unspecified Is this a current diagnosis for this admission?: Yes Plan: Not in exacerbation Avoid giving too much supplemental oxygen, goal is 89 to 94% saturation Inhalers, nebs as needed (3) Atrial fibrillation Qualifiers: Atrial fibrillation type: unspecified chronic Qualified Code(s): I48.20 - Chronic atrial fibrillation, unspecified; I48.2 - Chronic atrial fibrillation Is this a current diagnosis for this admission?: Yes Plan: Home medications He is not on anticoagulant likely due to his many falls at home and extremely high bleeding risk from falls (4) Congestive heart failure Qualifiers: Heart failure type: systolic Heart failure chronicity: chronic Qualified Code(s): I50.22 - Chronic systolic (congestive) heart failure Is this a current diagnosis for this admission?: Yes Plan: -home meds (5) Coronary artery disease Qualifiers: Coronary Disease-Associated Artery/Lesion type: [place] artery [place] vs. transplanted heart: [place] heart Associated angina: without angina Qualified Code(s): I25.10 - Atherosclerotic heart disease of [place] coronary artery without angina pectoris Is this a current diagnosis for this admission?: Yes (6) Rheumatoid arthritis Qualifiers: Rheumatoid arthritis location: unspecified site Rheumatoid factor presence: unspecified presence Qualified Code(s): M06.9 - Rheumatoid arthritis, unspecified Is this a current diagnosis for this admission?: Yes Plan: -HOLD methotrexate for active PNA (7) Dementia Qualifiers: Dementia type: unspecified type Dementia behavioral disturbance: without behavioral disturbance Qualified Code(s): F03.90 - Unspecified dementia without behavioral disturbance Is this a current diagnosis for this admission?: Yes - Plan Summary Summary: Patient be admitted to the medical service where he will receive routine supportive and symptomatic cares. He will be started on a azithromycin and cefepime for treatment of his pneumonia since he was recently hospitalized for a hip replacement. He will receive aggressive pulmonary toilet utilizing Xopenex, Atrovent and Mucomyst. He will receive supplemental oxygen as needed to m aintain an adequate oxygen saturation using nasal cannula and/or other devices. He will receive Ativan 1 mg IV every 4 hours as needed anxiety or restlessness. He will use morphine sulfate 2 to 4 mg IV every 2 hours on a as needed basis for control of pain. He will be continued on his usual home medications once his medication list has been verified and reconciled. He will be treated with a ca rdiac diet. He will also receive supplemental IV fluid over the first 24 hours. CBCs, metabolic profiles and magnesium levels will be obtained as needed. Additional radiography will be obtained if necessary. - Time Time Spent with patient: 25-34 minutes Medications reviewed and adjusted accordingly: Yes - Inpatient Certification Based on my medical assessment, after consideration of the patient's comorb idities, presenting symptoms, or acuity I expect that the services needed warrant INPATIENT care.: Yes I certify that my determination is in accordance with my understanding of Medicare's requirements for reasonable and necessary INPATIENT services [42 CFR 412.3e].: Yes Medical Necessity: Significant Comorbidiites Make Outpatient Treatment Too Risky, Need Close Monitoring Due to Risk of Patient Decompensation, Need for IV Antibiotics, Risk of Complication if Not Cared For in Hospital, Risk of Diagnosis Which Will Require Inpatient Eval/Care/Monitoring
[2019-11-25] MEDS: LEVALBUTEROL HCL NEB 0.63 MG/3 ML AMPUL NEB PRN (20:03)
[2019-11-25] MEDS: HALOPERIDOL LACTATE INJ 5 MG/1 ML VIAL IV PRN (22:16)
[2019-11-25] MEDS: QUETIAPINE FUMARATE 25 MG TABLET PO SCH (22:28)
[2019-11-25] MEDS ORDERED: BUMETANIDE INJ/PF 1 MG/4 ML SDV IV ONE (23:44)
[2019-11-26] MEDS: LEVALBUTEROL HCL NEB 1.25 MG/3 ML AMPUL NEB SCH ×3 (00:07→16:13)
[2019-11-26] MEDS: IPRATROPIUM BROMIDE 0.02% NEB 0.5 MG/2.5 ML AMPUL NEB SCH ×3 (00:07→16:13)
[2019-11-26] MEDS: HALOPERIDOL LACTATE INJ 5 MG/1 ML VIAL IV PRN ×2 (01:38→06:47)
[2019-11-26 05:04] LABS: HEMATOCRIT 35.2 % (37.9-51.0); MEAN CORPUSCULAR HEMOGLOBIN 33.3 pg (27.0-33.4); MEAN CORPUSCULAR HGB CONC 34.2 g/dL (32.0-36.0); MEAN CORPUSCULAR VOLUME 97 fl (80-97); PLATELET COUNT 118 10^3/uL (150-450); RED BLOOD COUNT 3.61 10^6/uL (4.35-5.55); RED CELL DISTRIBUTION WIDTH 15.9 % (11.5-14.0); WHITE BLOOD COUNT 12.4 10^3/uL (4.0-10.5)
[2019-11-26 05:16] LABS: ANION GAP 6 (5-19); BLOOD UREA NITROGEN 15 mg/dL (7-20); CALCIUM 8.5 mg/dL (8.4-10.2); CARBON DIOXIDE 29 mmol/L (22-30); CHLORIDE 100 mmol/L (98-107); GLUCOSE 77 mg/dL (75-110); POTASSIUM 3.7 mmol/L (3.6-5.0)
[2019-11-26] MEDS: HEPARIN SOD (PORCINE) 5,000 UNIT/ML 1 ML VIAL SUBCUT SCH ×3 (05:43→22:17)
[2019-11-26] MEDS: PANTOPRAZOLE SODIUM 20 MG TABLET.DR PO SCH (06:44)
[2019-11-26] MEDS: ACETYLCYSTEINE 20% SOLN 800 MG/4 ML VIAL.NEB NEB SCH ×2 (08:33→20:31)
[2019-11-26] MEDS: TAMSULOSIN HCL 0.4 MG CAP.SR.24H PO SCH (09:13)
[2019-11-26] MEDS: FOLIC ACID 1 MG TABLET PO SCH (09:13)
[2019-11-26] MEDS: FUROSEMIDE 80 MG TABLET PO SCH (09:13)
[2019-11-26] MEDS: METOPROLOL SUCCINATE 50 MG TAB.SR.24H PO SCH (09:13)
[2019-11-26] MEDS: DOCUSATE SODIUM 100 MG CAPSULE PO SCH ×2 (09:13→17:01)
[2019-11-26] MEDS: DONEPEZIL HCL 5 MG TABLET PO SCH (09:14)
[2019-11-26] MEDS: RINGERS SOLUTION,LACTATED 1,000 ML IV PRN (09:14)
[2019-11-26] MEDS: CEFEPIME HCL 2 GM in DEXTROSE 5%-WATER 50 ML IV SCH ×2 (09:14→22:27)
[2019-11-26] MEDS ORDERED: (PENDING PHARMACY ID) (Donepezil Hcl [Aricept] 10 MG) PO SCH (10:00)
[2019-11-26] MEDS: AZITHROMYCIN 500 MG in DEXTROSE 5%-WATER 250 ML IV SCH (10:22)
--- NOTE | 2019-11-26 14:09 | PDOC PROGRESS REPORT ---
Subjective Progress Note for:: 11/26/19 Subjective:: 11/25/2019 Patient seems to be doing quite well today all things considered. He is alert but oriented only to himself, seems to be in good spirits. Very mild crackles in his lungs on exam. No wheezing. Spoke with speech therapy who stated patient needed a modified barium swallow, and I agreed with this. Modified barium showed patient has some reflux aspiration and some delayed swallowing but no overt aspiration that would limit his diet. I have added Protonix to help with his reflux. BNP elevated, WBC elevated, chest CT showed patchy left lower lobe pneumonia with mediastinal lymphadenopathy and worsened T12 compression fracture. UA normal. 11/26/2019 Patient seems to be more confused today and is speaking nonsense and pulling at his diaper. He is however fully alert. His white blood cells are coming down as the infection clears. Urine culture is still pending and blood cultures negative so far. Vital signs are stable. We will need physical therapy to work with him. He cannot articulate any specific complaints today. Reason For Visit: LEFT SIDED PNEUMONIA Physical Exam Vital Signs: Temp Pulse Resp BP Pulse Ox 98.2 F 82 16 117/45 L 97 11/26/19 12:00 11/26/19 12:00 11/26/19 12:00 11/26/19 12:00 11/26/19 12:00 Intake & Output 11/25/19 11/26/19 11/27/19 06:59 06:59 06:59 Intake Total 0 1811 660 Balance 0 1811 660 Weight 64.9 kg 66.3 kg General appearance: PRESENT: no acute distress, disheveled, well-developed, well-nourished Head exam: PRESENT: atraumatic, normocephalic Eye exam: PRESENT: conjunctiva pink Mouth exam: PRESENT: moist Respiratory exam: PRESENT: crackles - Very scant crackles at bases. ABSENT: rales, rhonchi, wheezes Cardiovascular exam: PRESENT: RRR. ABSENT: diastolic murmur, rubs, systolic murmur GI/Abdominal exam: PRESENT: normal bowel sounds, soft. ABSENT: distended, guarding, mass, organolmegaly, rebound, tenderness Neurological exam: PRESENT: alert, awake, oriented to person Psychiatric exam: PRESENT: agitated Skin exam: PRESENT: dry, intact, warm Results Laboratory Results: 11/26/19 04:10 11/26/19 04:10 11/26/19 11/26/19 04:10 04:10 WBC 12.4 H RBC 3.61 L Hgb 12.0 L Hct 35.2 L MCV 97 MCH 33.3 MCHC 34.2 RDW 15.9 H Plt Count 118 L Sodium 134.8 L Potassium 3.7 Chloride 100 Carbon Dioxide 29 Anion Gap 6 BUN 15 Creatinine 0.68 Est GFR ( Amer) > 60 Glucose 77 Calcium 8.5 11/24/19 11/24/19 11/24/19 20:00 20:00 20:00 Creatine Kinase 24 L Troponin I 0.013 NT-Pro-B Natriuret Pep 1990 H Impressions: Chest X-Ray 11/24/19 21:33 IMPRESSION: Left lung consolidations. Bilateral pulmonary edema. Chest CT 11/25/19 00:00 IMPRESSION: 1. 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 Patchy airspace disease throughout the left lower lobe, likely infectious/ inflammatory although underlying lesion is not entirely excluded. Mediastinal adenopathy, possibly reactive although again underlying malignancy is not excluded. Recommend follow-up to resolution. 2. Cardiomegaly with significant coronary atherosclerosis. 3. Progression of compression deformity of the T12 vertebral body compared to exam dated 06/05/2017. Recommend correlation with symptoms. Modified Barium Swallow 11/25/19 00:00 IMPRESSION: LARYNGEAL PENETRATION AND POSSIBLE ASPIRATION DESCRIBED ABOVE. PLEASE SEE SPEECH PATHOLOGIST REPORT FOR OTHER FINDINGS AND RECOMMENDATIONS. Assessment and Plan - Diagnosis (1) Pneumonia involving left lung Qualifiers: Pneumonia type: due to unspecified organism Lung location: unspecified part of lung Qualified Code(s): J18.9 - Pneumonia, unspecified organism Is this a current diagnosis for this admission?: Yes Plan: Seen on chest CT and left lower lobe then mediastinal lymphadenopathy CT also showed worsened T12 compression fracture compared to prior imaging Empiric ceftriaxone/azithromycin Blood cultures 11/26/2019 Blood cultures negative Continue IV antibiotics as above WBC coming down, infection clearing (2) Chronic obstructive pulmonary disease Qualifiers: COPD type: unspecified COPD Qualified Code(s): J44.9 - Chronic obstructive pulmonary disease, unspecified Is this a current diagnosis for this admission?: Yes Plan: Not in exacerbation Avoid giving too much supplemental oxygen, goal is 89 to 94% saturation Inhalers, nebs as needed 11/25/2021 No wheezing today Bronchial hygiene, watch for aspiration and make sure patient drinks slowly and only when he is upright (3) Atrial fibrillation Qualifiers: Atrial fibrillation type: unspecified chronic Qualified Code(s): I48.20 - Chronic atrial fibrillation, unspecified; I48.2 - Chronic atrial fibrillation Is this a current diagnosis for this admission?: Yes (4) Congestive heart failure Qualifiers: Heart failure type: systolic Heart failure chronicity: chronic Qualified Code(s): I50.22 - Chronic systolic (congestive) heart failure Is this a current diagnosis for this admission?: Yes (5) Coronary artery disease Qualifiers: Coronary Disease-Associated Artery/Lesion type: [place] artery [place] vs. transplanted heart: [place] heart Associated angina: without angina Qualified Code(s): I25.10 - Atherosclerotic heart disease of [place] coronary artery without angina pectoris Is this a current diagnosis for this admission?: Yes (6) Rheumatoid arthritis Qualifiers: Rheumatoid arthritis location: unspecified site Rheumatoid factor presence: unspecified presence Qualified Code(s): M06.9 - Rheumatoid arthritis, unspecified Is this a current diagnosis for this admission?: Yes (7) Dementia Qualifiers: Dementia type: unspecified type Dementia behavioral disturbance: without behavioral disturbance Qualified Code(s): F03.90 - Unspecified dementia without behavioral disturbance Is this a current diagnosis for this admission?: Yes Plan: Severe and waxing/waning cognitive abilities - Plan Summary Summary: Patient be admitted to the medical service where he will receive routine supportive and symptomatic cares. He will be started on a azithromycin and cefepime for treatment of his pneumonia since he was recently hospitalized for a hip replacement. He will receive aggressive pulmonary toilet utilizing Xopenex, Atrovent and Mucomyst. He will receive supplemental oxygen as needed to maintain an adequate oxygen saturation using nasal cannula and/or other devices. He will receive Ativan 1 mg IV every 4 hours as needed anxiety or restlessness. He will use morphine sulfate 2 to 4 mg IV every 2 hours on a as needed basis for control of pain. He will be continued on his usual home medications once his medication list has been verified and reconciled. He will be treated with a cardiac diet. He will also receive supplemental IV fluid over the first 24 hours. CBCs, metabolic profiles and magnesium levels will be obtained as needed. Additional radiography will be obtained if necessary. - Time Time Spent with patient: 15-24 minutes Medications reviewed and adjusted accordingly: Yes - Inpatient Certification Based on my medical assessment, after consideration of the patient's comorbidities, presenting symptoms, or acuity I expect that the services needed warrant INPATIENT care.: Yes I certify that my determination is in accordance with my understanding of Medicare's requirements for reasonable and necessary INPATIENT services [42 CFR 412.3e].: Yes Medical Necessity: Significant Comorbidiites Make Outpatient Treatment Too Risky, Need Close Monitoring Due to Risk of Patient Decompensation, Need for IV Antibiotics, Risk of Complication if Not Cared For in Hospital, Risk of Diagnosis Which Will Require Inpatient Eval/Care/Monitoring
[2019-11-26] MEDS: QUETIAPINE FUMARATE 25 MG TABLET PO SCH (22:27)
[2019-11-27] MEDS: IPRATROPIUM BROMIDE 0.02% NEB 0.5 MG/2.5 ML AMPUL NEB SCH ×3 (00:18→16:09)
[2019-11-27] MEDS: LEVALBUTEROL HCL NEB 1.25 MG/3 ML AMPUL NEB SCH ×3 (00:18→16:09)
[2019-11-27 05:41] LABS: HEMATOCRIT 33.7 % (37.9-51.0); HEMOGLOBIN 11.8 g/dL (13.5-17.0); MEAN CORPUSCULAR HEMOGLOBIN 33.8 pg (27.0-33.4); MEAN CORPUSCULAR VOLUME 97 fl (80-97); PLATELET COUNT 123 10^3/uL (150-450); RED BLOOD COUNT 3.49 10^6/uL (4.35-5.55); WHITE BLOOD COUNT 7.5 10^3/uL (4.0-10.5)
[2019-11-27] MEDS: PANTOPRAZOLE SODIUM 20 MG TABLET.DR PO SCH (05:54)
[2019-11-27] MEDS: HEPARIN SOD (PORCINE) 5,000 UNIT/ML 1 ML VIAL SUBCUT SCH ×3 (05:55→21:20)
[2019-11-27] MEDS: ACETYLCYSTEINE 20% SOLN 800 MG/4 ML VIAL.NEB NEB SCH ×2 (08:02→20:12)
[2019-11-27] MEDS: DOCUSATE SODIUM 100 MG CAPSULE PO SCH ×2 (09:30→17:15)
[2019-11-27] MEDS: CEFEPIME HCL 2 GM in DEXTROSE 5%-WATER 50 ML IV SCH ×2 (09:33→21:19)
[2019-11-27] MEDS: DONEPEZIL HCL 5 MG TABLET PO SCH (09:33)
[2019-11-27] MEDS: FUROSEMIDE 80 MG TABLET PO SCH (09:33)
[2019-11-27] MEDS: METOPROLOL SUCCINATE 50 MG TAB.SR.24H PO SCH (09:33)
[2019-11-27] MEDS: FOLIC ACID 1 MG TABLET PO SCH (09:33)
[2019-11-27] MEDS: TAMSULOSIN HCL 0.4 MG CAP.SR.24H PO SCH (09:33)
[2019-11-27] MEDS: AZITHROMYCIN 500 MG in DEXTROSE 5%-WATER 250 ML IV SCH (10:03)
--- NOTE | 2019-11-27 17:42 | PDOC PROGRESS REPORT ---
Subjective Progress Note for:: 11/27/19 Subjective:: 11/25/2019 Patient seems to be doing quite well today all things considered. He is alert but oriented only to himself, seems to be in good spirits. Very mild crackles in his lungs on exam. No wheezing. Spoke with speech therapy who stated patient needed a modified barium swallow, and I agreed with this. Modified barium showed patient has some reflux aspiration and some delayed swallowing but no overt aspiration that would limit his diet. I have added Protonix to help with his reflux. BNP elevated, WBC elevated, chest CT showed patchy left lower lobe pneumonia with mediastinal lymphadenopathy and worsened T12 compression fracture. UA normal. 11/26/2019 Patient seems to be more confused today and is speaking nonsense and pulling at his diaper. He is however fully alert. His white blood cells are coming down as the infection clears. Urine culture is still pending and blood cultures negative so far. Vital signs are stable. We will need physical therapy to work with him. He cannot articulate any specific complaints today. 11/27/2019 I had an extensive phone conversation with the patient's family and answered many of their questions. They state that patient had a very bad experience in a nursing facility in the past and this caused him to lose approximately 20 pounds. With the current coronavirus pandemic they are also worried that he would be isolated from them and continue to decline. They would like him to come home with home health and possibly increase his physical therapy frequency. The patient's daughter and son-in-law live with him and his and care for them throughout the day. I told them I believe the patient will be ready for discharge tomorrow and he will finish his antibiotics tomorrow as well. 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 Currently, does not seem that he is quite at that stage yet. Patient has no specific complaints today but he has baseline confused and per the family this is much worse when he is in the hospital. Plan to discharge home tomorrow. Reason For Visit: LEFT SIDED PNEUMONIA Physical Exam Vital Signs: Temp Pulse Resp BP Pulse Ox 97.3 F 86 16 116/42 L 95 11/27/19 16:06 11/27/19 16:09 11/27/19 16:09 11/27/19 16:06 11/27/19 16:09 Intake & Output 11/26/19 11/27/19 11/28/19 06:59 06:59 06:59 Intake Total 1810 2219 420 Output Total 150 Balance 1810 2069 420 Weight 66.3 kg 65.4 kg General appearance: PRESENT: no acute distress, well-developed, well-nourished Head exam: PRESENT: atraumatic, normocephalic Eye exam: PRESENT: conjunctiva pink Mouth exam: PRESENT: moist Respiratory exam: PRESENT: clear to auscultation javier. ABSENT: rales, rhonchi, wheezes Cardiovascular exam: PRESENT: RRR. ABSENT: diastolic murmur, rubs, systolic murmur GI/Abdominal exam: PRESENT: normal bowel sounds, soft. ABSENT: distended, guarding, mass, organolmegaly, rebound, tenderness Extremities exam: ABSENT: pedal edema Neurological exam: PRESENT: alert, awake, oriented to person Psychiatric exam: PRESENT: appropriate affect, normal mood Skin exam: PRESENT: dry, intact, warm Results Laboratory Results: 11/27/19 04:56 11/26/19 04:10 11/27/19 04:56 WBC 7.5 RBC 3.49 L Hgb 11.8 L Hct 33.7 L MCV 97 MCH 33.8 H MCHC 35.0 RDW 16.0 H Plt Count 123 L 11/24/19 23:12 Catheterized Urine Urine Culture - Final NO GROWTH 2 DAYS 11/24/19 11/24/19 11/24/19 20:00 20:00 20:00 Creatine Kinase 24 L Troponin I 0.013 NT-Pro-B Natriuret Pep 1990 H Impressions: Chest X-Ray 11/24/19 21:33 IMPRESSION: Left lung consolidations. Bilateral pulmonary edema. Chest CT 11/25/19 00:00 IMPRESSION: 1. 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 Patchy airspace disease throughout the left lower lobe, likely infectious/ inflammatory although underlying lesion is not entirely excluded. Mediastinal adenopathy, possibly reactive although again underlying malignancy is not excluded. Recommend follow-up to resolution. 2. Cardiomegaly with significant coronary atherosclerosis. 3. Progression of compression deformity of the T12 vertebral body compared to exam dated 06/05/2017. Recommend correlation with symptoms. Modified Barium Swallow 11/25/19 00:00 IMPRESSION: LARYNGEAL PENETRATION AND POSSIBLE ASPIRATION DESCRIBED ABOVE. PLEASE SEE SPEECH PATHOLOGIST REPORT FOR OTHER FINDINGS AND RECOMMENDATIONS. Assessment and Plan - Diagnosis (1) Pneumonia involving left lung Qualifiers: Pneumonia type: due to unspecified organism Lung location: unspecified part of lung Qualified Code(s): J18.9 - Pneumonia, unspecified organism Is this a current diagnosis for this admission?: Yes Plan: Seen on chest CT and left lower lobe then mediastinal lymphadenopathy CT also showed worsened T12 compression fracture compared to prior imaging Empiric ceftriaxone/azithromycin Blood cultures 11/26/2019 Blood cultures negative Continue IV antibiotics as above WBC coming down, infection clearing 11/27/2019 Blood cultures are still negative IV antibiotics can complete 5-day course tomorrow (2) Chronic obstructive pulmonary disease Qualifiers: COPD type: unspecified COPD Qualified Code(s): J44.9 - Chronic obstructive pulmonary disease, unspecified Is this a current diagnosis for this admission?: Yes (3) Atrial fibrillation Qualifiers: Atrial fibrillation type: unspecified chronic Qualified Code(s): I48.20 - Chronic atrial fibrillation, unspecified; I48.2 - Chronic atrial fibrillation Is this a current diagnosis for this admission?: Yes (4) Congestive heart failure Qualifiers: Heart failure type: systolic Heart failure chronicity: chronic Qualified Code(s): I50.22 - Chronic systolic (congestive) heart failure Is this a current diagnosis for this admission?: Yes (5) Coronary artery disease Qualifiers: Coronary Disease-Associated Artery/Lesion type: [place] artery [place] vs. transplanted heart: [place] heart Associated angina: without angina Qualified Code(s): I25.10 - Atherosclerotic heart disease of [place] coronary artery without angina pectoris Is this a current diagnosis for this admission?: Yes (6) Rheumatoid arthritis Qualifiers: Rheumatoid arthritis location: unspecified site Rheumatoid factor presence: unspecified presence Qualified Code(s): M06.9 - Rheumatoid arthritis, unspecified Is this a current diagnosis for this admission?: Yes (7) Dementia Qualifiers: Dementia type: unspecified type Dementia behavioral disturbance: without behavioral disturbance Qualified Code(s): F03.90 - Unspecified dementia without behavioral disturbance Is this a current diagnosis for this admission?: Yes (8) Pressure ulcer Qualifiers: Pressure injury location: unspecified location Pressure injury stage: stage 2 Qualified Code(s): L89.92 - Pressure ulcer of unspecified site, stage 2 Is this a current diagnosis for this admission?: Yes Plan: Noted by nursing on skin exam Stage I-II ulcer on bilateral heels which have been cared for by nurses here. These wounds were present on admission - Plan Summary Summary: Patient be admitted to the medical service where he will receive routine supportive and symptomatic cares. He will be started on a azithromycin and cefepime for treatment of his pneumonia since he was recently hospitalized for a hip replacement. He will receive aggressive pulmonary toilet utilizing Xopenex, Atrovent and Mucomyst. He will receive supplemental oxygen as needed to maintain an adequate oxygen saturation using nasal cannula and/or other devices. He will receive Ativan 1 mg IV every 4 hours as needed anxiety or restlessness. He will use morphine sulfate 2 to 4 mg IV every 2 hours on a as needed basis for control of pain. He will be continued on his usual home medications once his medication list has been verified and reconciled. He will be treated with a cardiac diet. He will also receive supplemental IV fluid over the first 24 hours. CBCs, metabolic profiles and magnesium levels will be obtained as needed. Additional radiography will be obtained if necessary. - Time Time Spent with patient: 15-24 minutes Medications reviewed and adjusted accordingly: Yes Anticipated discharge: Home with Homehealth Within: within 48 hours - Inpatient Certification Based on my medical assessment, after consideration of the patient's comorbidities, presenting symptoms, or acuity I expect that the services needed warrant INPATIENT care.: Yes I certify that my determination is in accordance with my understanding of Medicare's requirements for reasonable and necessary INPATIENT services [42 CFR 412.3e].: Yes Medical Necessity: Significant Comorbidiites Make Outpatient Treatment Too Risky, Need Close Monitoring Due to Risk of Patient Decompensation, Need for IV Antibiotics, Risk of Complication if Not Cared For in Hospital, Risk of Diagnosis Which Will Require Inpatient Eval/Care/Monitoring
[2019-11-27] MEDS: LEVALBUTEROL HCL NEB 0.63 MG/3 ML AMPUL NEB PRN (20:12)
[2019-11-27] MEDS: QUETIAPINE FUMARATE 25 MG TABLET PO SCH (21:20)
[2019-11-27] MEDS: LORAZEPAM INJ 2 MG/1 ML VIAL IV PRN (23:55)
[2019-11-28] MEDS: LEVALBUTEROL HCL NEB 1.25 MG/3 ML AMPUL NEB SCH ×2 (00:03→07:39)
[2019-11-28] MEDS: IPRATROPIUM BROMIDE 0.02% NEB 0.5 MG/2.5 ML AMPUL NEB SCH ×2 (00:03→07:39)
[2019-11-28] MEDS: HEPARIN SOD (PORCINE) 5,000 UNIT/ML 1 ML VIAL SUBCUT SCH ×2 (05:26→13:02)
[2019-11-28] MEDS: PANTOPRAZOLE SODIUM 20 MG TABLET.DR PO SCH (05:28)
[2019-11-28 06:30] LABS: HEMATOCRIT 37.3 % (37.9-51.0); HEMOGLOBIN 12.7 g/dL (13.5-17.0); MEAN CORPUSCULAR HEMOGLOBIN 33.5 pg (27.0-33.4); MEAN CORPUSCULAR HGB CONC 34.2 g/dL (32.0-36.0); MEAN CORPUSCULAR VOLUME 98 fl (80-97); PLATELET COUNT 150 10^3/uL (150-450); RED BLOOD COUNT 3.81 10^6/uL (4.35-5.55); RED CELL DISTRIBUTION WIDTH 15.9 % (11.5-14.0); WHITE BLOOD COUNT 6.3 10^3/uL (4.0-10.5)
[2019-11-28] MEDS: FUROSEMIDE 80 MG TABLET PO SCH (08:13)
[2019-11-28] MEDS: ACETYLCYSTEINE 20% SOLN 800 MG/4 ML VIAL.NEB NEB SCH (08:46)
[2019-11-28] MEDS ORDERED: AZITHROMYCIN 250 MG TABLET PO SCH (10:00)
[2019-11-28] MEDS: METOPROLOL SUCCINATE 50 MG TAB.SR.24H PO SCH (10:11)
[2019-11-28] MEDS: DOCUSATE SODIUM 100 MG CAPSULE PO SCH (10:11)
[2019-11-28] MEDS: DONEPEZIL HCL 5 MG TABLET PO SCH (10:11)
[2019-11-28] MEDS: CEFEPIME HCL 2 GM in DEXTROSE 5%-WATER 50 ML IV SCH (10:12)
[2019-11-28] MEDS: TAMSULOSIN HCL 0.4 MG CAP.SR.24H PO SCH (10:12)
[2019-11-28] MEDS: FOLIC ACID 1 MG TABLET PO SCH (10:12)
--- NOTE | 2019-11-28 13:14 | PDOC DISCHARGE SUMMARY ---
Impression - Admit/DC Date/PCP Admission Date/Primary Care Provider: 11/25/19 00:18 VI COLLIER MD Discharge Date: 11/28/19 - Discharge Diagnosis (1) Pneumonia involving left lung Is this a current diagnosis for this admission?: Yes (2) Chronic obstructive pulmonary disease Is this a current diagnosis for this admission?: Yes (3) Atrial fibrillation Is this a current diagnosis for this admission?: Yes (4) Congestive heart failure Is this a current diagnosis for this admission?: Yes (5) Coronary artery disease Is this a current diagnosis for this admission?: Yes (6) Rheumatoid arthritis Is this a current diagnosis for this admission?: Yes (7) Dementia Is this a current diagnosis for this admission?: Yes (8) Pressure ulcer Is this a current diagnosis for this admission?: Yes - Additional Information Resuscitation Status: Full Code Discharge Diet: As Tolerated, Regular Discharge Activity: Activity As Tolerated Referrals: VI COLLIER MD [Primary Care Provider] - Follow up as needed Home Medications: Donepezil HCl [Aricept] 10 mg PO DAILY 11/20/17 Folic Acid [Folvite 1 mg Tablet] 1 mg PO DAILY 11/20/17 Methotrexate Sodium [Methotrexate] 15 mg PO FR@1000 11/20/17 Metoprolol Succinate [Toprol Xl 50 mg Tab.sr] 75 mg PO DAILY 11/20/17 Omeprazole 20 mg PO DAILY 11/20/17 Tamsulosin HCl [Flomax 0.4 mg Cap.sr] 0.4 mg PO DAILY 11/20/17 Furosemide [Lasix 80 mg Tablet] 80 mg PO QAM 11/25/19 Quetiapine Fumarate [Seroquel 25 mg Tablet] 25 mg PO QHS 11/25/19 Guaifenesin [Robitussin Syrup 200 mg/10 ml Ud Cup] 200 mg PO QIDP PRN udc 11/28/19 History of Present Illiness History of Present Illness: Per admitting physician: "OBDULIA POP is a 89 year old male presenting the emergency room with an acute history of fever. Patient was sent to the emergency room via EMS by his family after they noted a fever of 101.9 F at home and administered Tylenol to the patient. Family had also noted an associated tachypnea. Family had not noted any other associated or accompanying signs and symptoms. Family reports numerous prior similar episodes related to exacerbations of COPD and pneumonia. Family denies any aggravating or ameliorating factors for his fever. Patient has dementia and though he is oriented to person he has otherwise poorly oriented and not a reliable historian for purposes of the medical record. In the emergency room the patient was found to have tachypnea, a left-sided pneumonia and a leukocytosis of 18,900. He was subsequently admitted to the hospital for further evaluation treatment." Hospital Course Hospital Course: Patient is severely demented admitted for pneumonia. Treated with broad- spectrum IV antibiotics. Overall improved, but extremely confused and has severe sundowning intermittently. This is his baseline per family. 11/25/2019 Patient seems to be doing quite well today all things considered. He is alert but oriented only to himself, seems to be in good spirits. Very mild crackles in his lungs on exam. No wheezing. Spoke with speech therapy who stated patient needed a modified barium swallow, and I agreed with this. Modified barium showed patient has some reflux aspiration and some delayed swallowing but no overt aspiration that would limit his diet. I have added Protonix to help with his reflux. BNP elevated, WBC elevated, chest CT showed patchy left lower lobe pneumonia with mediastinal lymphadenopathy and worsened T12 compression fracture. UA normal. 11/26/2019 Patient seems to be more confused today and is speaking nonsense and pulling at his diaper. He is however fully alert. His white blood cells are coming down as the infection clears. Urine culture is still pending and blood cultures negative so far. Vital signs are stable. We will need physical therapy to work with him. He cannot articulate any specific complaints today. 11/27/2019 I had an extensive phone conversation with the patient's family and answered many of their questions. They state that patient had a very bad experience in a nursing facility in the past and this caused him to lose approximately 20 pounds. With the current coronavirus pandemic they are also worried that he would be isolated from them and continue to decline. They would like him to come home with home health and possibly increase his physical therapy frequency. The patient's daughter and son-in-law live with him and his and care for them throughout the day. I told them I believe the patient will be ready for discharge tomorrow and he will finish his antibiotics tomorrow as well. 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 Currently, does not seem that he is quite at that stage yet. Patient has no specific complaints today but he has baseline confused and per the family this is much worse when he is in the hospital. Plan to discharge home tomorrow. 11/28/2019 Patient will be discharged home today. He is extremely confused but per family this is his baseline. He also stated he significantly improves once he is back home in a familiar environment. His broad antibiotics will finish today and complete treatment of his pneumonia. Family does not want him to go to SNF but rather to go home with home health. Physical Exam Vital Signs: Temp Pulse Resp BP Pulse Ox 97.3 F 100 19 118/58 L 95 11/28/19 11:39 11/28/19 11:39 11/28/19 11:39 11/28/19 11:39 11/28/19 11:39 Intake & Output 11/27/19 11/28/19 11/29/19 06:59 06:59 06:59 Intake Total 2220 1172 50 Output Total 150 Balance 0 1172 50 Weight 65.4 kg 62.1 kg 62.1 kg General appearance: PRESENT: no acute distress, well-developed, well-nourished Head exam: PRESENT: atraumatic, normocephalic Eye exam: PRESENT: conjunctiva pink Mouth exam: PRESENT: moist Respiratory exam: PRESENT: clear to auscultation javier. ABSENT: rales, rhonchi, wheezes Cardiovascular exam: PRESENT: RRR. ABSENT: diastolic murmur, rubs, systolic m urmur GI/Abdominal exam: PRESENT: normal bowel sounds, soft. ABSENT: distended, guarding, mass, organolmegaly, rebound, tenderness Extremities exam: ABSENT: pedal edema Neurological exam: PRESENT: alert, awake, oriented to person Psychiatric exam: PRESENT: appropriate affect, normal mood Skin exam: PRESENT: dry, intact, warm Results Laboratory Results: WBC 6.3 10^3/uL (4.0-10.5) 11/28/19 05:08 RBC 3.81 10^6/uL (4.35-5.55) L 11/28/19 05:08 Hgb 12.7 g/dL (13.5-17.0) L 11/28/19 05:08 Hct 37.3 % (37.9-51.0) L 11/28/19 05:08 MCV 98 fl (80-97) H 11/28/19 05:08 MCH 33.5 pg (27.0-33.4) H 11/28/19 05:08 MCHC 34.2 g/dL (32.0-36.0) 11/28/19 05:08 RDW 15.9 % (11.5-14.0) H 11/28/19 05:08 Plt Count 150 10^3/uL (150-450) 11/28/19 05:08 Lymph % (Auto) Not Reportable 11/24/19 20:00 [place] % (Auto) Not Reportable 11/24/19 20:00 Eos % (Auto) Not Reportable 11/24/19 20:00 Baso % (Auto) Not Reportable 11/24/19 20:00 Absolute Neuts (auto) Not Reportable 11/24/19 20:00 Absolute Lymphs (auto) Not Reportable 11/24/19 20:00 Absolute Monos (auto) Not Reportable 11/24/19 20:00 Absolute Eos (auto) Not Reportable 11/24/19 20:00 Absolute Basos (auto) Not Reportable 11/24/19 20:00 Total Counted 100 11/24/19 20:00 Seg Neutrophils % Not Reportable 11/24/19 20:00 Seg Neuts % (Manual) 88 % (42-78) H 11/24/19 20:00 Band Neutrophils % 2 % (3-5) L 11/24/19 20:00 Lymphocytes % (Manual) 2 % (13-45) L 11/24/19 20:00 Monocytes % (Manual) 5 % (3-13) 11/24/19 20:00 Eosinophils % (Manual) 2 % (0-6) 11/24/19 20:00 Basophils % (Manual) 1 % (0-2) 11/24/19 20:00 Abs Neuts (Manual) 17.0 10^3/uL (1.7-8.2) H 11/24/19 20:00 Abs Lymphs (Manual) 0.4 10^3/uL (0.5-4.7) L 11/24/19 20:00 Abs Monocytes (Manual) 0.9 10^3/uL (0.1-1.4) 11/24/19 20:00 Absolute Eos (Manual) 0.4 10^3/uL (0.0-0.6) 11/24/19 20:00 Abs Basophils (Manual) 0.2 10^3/uL (0.0-0.2) 11/24/19 20:00 Toxic Vacuolation PRESENT 11/24/19 20:00 Platelet Comment ADEQUATE 11/24/19 20:00 Sodium 134.8 mmol/L (137-145) L 11/26/19 04:10 Potassium 3.7 mmol/L (3.6-5.0) 11/26/19 04:10 Chloride 100 mmol/L (98-107) 11/26/19 04:10 Carbon Dioxide 29 mmol/L (22-30) 11/26/19 04:10 Anion Gap 6 (5-19) 11/26/19 04:10 BUN 15 mg/dL (7-20) 11/26/19 04:10 Creatinine 0.68 mg/dL (0.52-1.25) 11/26/19 04:10 Est GFR ( Amer) > 60 (>60) 11/26/19 04:10 Est GFR (MDRD) Non-Af > 60 (>60) 11/26/19 04:10 Glucose 77 mg/dL (75-110) 11/26/19 04:10 Calcium 8.5 mg/dL (8.4-10.2) 11/26/19 04:10 Total Bilirubin 1.2 mg/dL (0.2-1.3) 11/24/19 20:00 Direct Bilirubin 0.1 mg/dL (0.0-0.4) 11/24/19 20:00 Neonat Total Bilirubin Not Reportable 11/24/19 20:00 Neonat Direct Bilirubin Not Reportable 11/24/19 20:00 Neonat Indirect Bili Not Reportable 11/24/19 20:00 AST 26 U/L (17-59) 11/24/19 20:00 ALT 14 U/L (<50) 11/24/19 20:00 Alkaline Phosphatase 136 U/L (38-126) H 11/24/19 20:00 Creatine Kinase 24 U/L (55-170) L 11/24/19 20:00 Troponin I 0.013 ng/mL 11/24/19 20:00 NT-Pro-B Natriuret Pep 1990 pg/mL (<450) H 11/24/19 20:00 Total Protein 6.3 g/dL (6.3-8.2) 11/24/19 20:00 Albumin 3.1 g/dL (3.5-5.0) L 11/24/19 20:00 Urine Color JIAN 11/24/19 23:12 Urine Appearance SLIGHTLY-CLOUDY 11/24/19 23:12 Urine pH 5.0 (5.0-9.0) 11/24/19 23:12 Ur Specific [place] 1.028 11/24/19 23:12 Urine Protein 30 mg/dL (NEGATIVE) H 11/24/19 23:12 Urine Glucose (UA) NEGATIVE mg/dL (NEGATIVE) 11/24/19 23:12 Urine Ketones NEGATIVE mg/dL (NEGATIVE) 11/24/19 23:12 Urine Blood NEGATIVE (NEGATIVE) 11/24/19 23:12 Urine Nitrite NEGATIVE (NEGATIVE) 11/24/19 23:12 Urine Bilirubin NEGATIVE (NEGATIVE) 11/24/19 23:12 Urine Urobilinogen 2.0 mg/dL (<2.0) H 11/24/19 23:12 Ur Leukocyte Esterase NEGATIVE (NEGATIVE) 11/24/19 23:12 Urine WBC (Auto) 4 /HPF 11/24/19 23:12 Urine RBC (Auto) 2 /HPF 11/24/19 23:12 U Hyaline Cast (Auto) 3 /LPF 11/24/19 23:12 Squamous Epi Cells Auto <1 /HPF 11/24/19 23:12 Urine Mucus (Auto) MANY /LPF 11/24/19 23:12 Urine Ascorbic Acid NEGATIVE (NEGATIVE) 11/24/19 23:12 11/24/19 11/24/19 20:00 20:00 Troponin I 0.013 NT-Pro-B Natriuret Pep 1990 H Impressions: Chest X-Ray 11/24/19 21:33 IMPRESSION: Left lung consolidations. Bilateral pulmonary edema. Chest CT 11/25/19 00:00 IMPRESSION: 1. 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 Patchy airspace disease throughout the left lower lobe, likely infectious/ inflammatory although underlying lesion is not entirely excluded. Mediastinal adenopathy, possibly reactive although again underlying malignancy is not excluded. Recommend follow-up to resolution. 2. Cardiomegaly with significant coronary atherosclerosis. 3. Progression of compression deformity of the T12 vertebral body compared to exam dated 06/05/2017. Recommend correlation with symptoms. Modified Barium Swallow 11/25/19 00:00 IMPRESSION: LARYNGEAL PENETRATION AND POSSIBLE ASPIRATION DESCRIBED ABOVE. PLEASE SEE SPEECH PATHOLOGIST REPORT FOR OTHER FINDINGS AND RECOMMENDATIONS. Plan Time Spent: Greater than 30 Minutes Stroke Is this a Stroke Patient?: No Acute Heart Failure - Is this a Heart Failure Patient?: Yes Documentation of LVEF assessment?: Planned for after discharge LVEF < 40%?: No- if no continue to question #3 3. Anticoagulant therapy for permanect/persistent/paraoxysmal Afib or Aflutter: No, document contraindications Reason(s) not discharged on anticoagulant therapy for permanect/persistent/paraoxysmal Afib or Aflutter: Repeated falls/unsteady gait Follow-up Appointment scheduled within 7 days?: Yes
[2019-11-28 14:08] VITALS: BP 115/53
== END 2019-11-28 14:48 | disposition home health service (06) | DRG 194 ==
LOC: ER 20:14 → EH 11-25 00:18 → 4N 11-25 01:18
PROVIDERS: ADMIT Emergency Medicine; ATTEND Internal Medicine
DX: J18.9 Pneumonia, unspecified organism (principal); F05 Delirium due to known physiological condition; J44.0 Chronic obstructive pulmonary disease with (acute) lower respiratory infection; I48.20 Chronic atrial fibrillation, unspecified; I50.22 Chronic systolic (congestive) heart failure; L89.622 Pressure ulcer of left heel, stage 2; L89.612 Pressure ulcer of right heel, stage 2; F03.90 Unspecified dementia, unspecified severity, without behavioral disturbance, psychotic disturbance, mood disturbance, and anxiety; I11.0 Hypertensive heart disease with heart failure; I25.10 Atherosclerotic heart disease of native coronary artery without angina pectoris; M06.9 Rheumatoid arthritis, unspecified; R06.82 Tachypnea, not elsewhere classified; K21.9 Gastro-esophageal reflux disease without esophagitis; I73.9 Peripheral vascular disease, unspecified; M19.90 Unspecified osteoarthritis, unspecified site; Z96.649 Presence of unspecified artificial hip joint; Z87.01 Personal history of pneumonia (recurrent); Z85.118 Personal history of other malignant neoplasm of bronchus and lung; Z95.1 Presence of aortocoronary bypass graft; Z88.6 Allergy status to analgesic agent; Z91.81 History of falling; Z87.891 Personal history of nicotine dependence
CPT/HCPCS: 36415; 71045; 71250; 74230; 80048; 80053; 81001; 82550; 83880; 84484; 85025; 85027; 87040; 87086; 93005; 93010; 94640; 99291; 99292; J0456; J0692; J0696; J1630; J1644; J2060; J3490; J7060; J7120; J7614